=== PATIENT | male | born 1975 | race Caucasian/White ===

== ENCOUNTER 2020-07-24 12:34 | Inpatient (IN) | payer OTHER ==
[2020-07-24] MEDS ORDERED: Pantoprazole 40 MG Vial IVPUSH ONE (13:03)
--- NOTE | 2020-07-24 13:08 | EDM.PDOC ---
ED HPI GENERAL MEDICAL PROBLEM - General Chief Complaint: Syncope Stated Complaint: [facility] Time Seen by Provider: 07/24/20 13:02 Source of Information: Reports: Patient History Limitations: Reports: No Limitations - History of Present Illness INITIAL COMMENTS - FREE TEXT/NARRATIVE: 44-year-old male presents the ED from [place] per [facility]. Patient reports that he has appreciated black tarry stools once yesterday once again this morning and perhaps once or twice 2 days ago. He said no GI cramps or pain. He is on a diet and only eats once daily. He takes aspirin usually 325 mg daily. Does not take it every day. He denies any use of other NSAIDs such as Motrin or Naprosyn. He has not been on any steroids recently. Does not really have any significant heartburn and is not been having a lot of upper abdominal discomfort particular nothing that would wake him up in night to suggest peptic ulcer disease. This morning he went into the bathroom and started feel lightheaded dizzy and had a syncopal event which put him down to the floor. He fell backwards and did strike the floor with the right parietal occipital scalp and does have a small hematoma in this area. He does not believe he was unresponsive for very long. At present he is alert oriented with no nausea or vomiting. Feels weak and lightheaded with standing. Patient takes no medications [id number] or prescribed by Onset: Gradual (First noted dark black tarry stools x2 3 days ago. Had 1) Onset Date: 07/22/20 Duration: Day(s):, Constant, Getting Worse Location: Reports: Other (Black tarry stools per rectum for the last 3 days. Syncopal event this morning.) Quality: Reports: Other Severity: Moderate (Black tarry stools) Improves with: Reports: None Worsens with: Reports: None Context: Denies: Activity, Exercise, Lifting, Sick Contact, Trauma, Other Associated Symptoms: Reports: Syncope (Syncopal event this morning. Syncopal event this morning.), Weakness. Denies: No Other Symptoms, Confusion, Chest Pain, Cough, cough w sputum, Diaphoresis, Fever/Chills, Headaches, Loss of Appetite, Malaise, Nausea/Vomiting, Rash, Seizure, Shortness of Breath Treatments DRUG ENFORCEMENT AGENT: Reports: Other (see below) (None.) - Related Data Allergies Allergy/AdvReac Type Severity Reaction Status Date / Time No Known Allergies Allergy Verified 07/24/20 12:53 Home Meds: Home Meds Albuterol [Ventolin HFA] 1 dose INH Q4H PRN 07/24/20 [History] Past Medical History Respiratory History: Reports: Asthma - Past Surgical History GI Surgical History: Reports: Other (See Below) Other GI Surgeries/Procedures: surgery where he is unable to vomit now Social & Family History - Tobacco Use Smoking Status *Q: Never Smoker - Caffeine Use Caffeine Use: Reports: None - Recreational Drug Use Recreational Drug Use: No - Living Situation & Occupation Occupation: Employed ED ROS GENERAL - Review of Systems Review Of Systems: See Below Constitutional: Reports: Malaise, Weakness, Fatigue. Denies: Fever, Chills HEENT: Reports: No Symptoms Respiratory: Reports: No Symptoms Cardiovascular: Reports: Syncope (Couple event this morning in the bathroom. He states he did start to feel little lightheaded and dizzy and the next thing he knew he was on the floor. States he did have a bump to his right parietal occipital scalp but does not believe he lost consciousness for very long.) Endocrine: Reports: No Symptoms GI/Abdominal: Reports: Melena (Dark melena stool once this morning once yesterday and twice the day before.) : Reports: No Symptoms Musculoskeletal: Reports: No Symptoms Skin: Reports: No Symptoms Neurological: Reports: No Symptoms Psychiatric: Reports: No Symptoms Hematologic/Lymphatic: Reports: No Symptoms Immunologic: Reports: No Symptoms - Physical Exam Exam: See Below Exam Limited By: No Limitations General Appearance: Alert, WD/WN, No Apparent Distress, Other (Temperature is 36.4 with a heart rate of 100 at rest. Respiratory is 20 with O2 sats 100% room air BP 134/97.) Eye Exam: Bilateral Eye: Normal Inspection (No scleral icterus or blepharal pallor.), PERRL Throat/Mouth: Normal Inspection, Normal Lips, Normal Oropharynx Head Exam: Scalp Hematoma (Open wounds or bleeding.), Other Neck: Normal Inspection, Supple, Non-Tender, Full Range of Motion, Other. No: Lymphadenopathy (L), Lymphadenopathy (R) Respiratory/Chest: No Respiratory Distress (Reports his neck feels a little stiff but he has full range of motion.), Lungs Clear, Normal Breath Sounds, No Accessory Muscle Use, Chest Non-Tender, Other (No pain on firm compression of his ribs.) Cardiovascular: Normal Peripheral Pulses, Regular Rate, Rhythm, No Edema, No Gallop, No Murmur, No Rub GI/Abdominal: Normal Bowel Sounds, Soft, Non-Tender, No Organomegaly, No Abnormal Bruit, Pelvis Stable, Other (Patient has a midline surgical scar from xiphoid process to the umbilicus. He states at age 13 due to severe reflux disease which was thought to be aggravating his asthma he underwent a Yovany fundoplication. This was done to open.) (Male) Exam: No Hernia Neuro Exam (Abbreviated): Alert, Oriented, CN II-XII Intact, Normal Cognition Back Exam: Normal Inspection, Full Range of Motion, Other (He is aware some low back tenderness but I could not elicit any tenderness on firm palpation over the). No: CVA Tenderness (L), CVA Tenderness (R) Extremities: Normal Inspection ( vertebra.), Normal Range of Motion, Non-Tender, No Pedal Edema Psychiatric: Normal Affect, Normal Mood Skin Exam: Warm, Dry, Intact, Normal Color, No Rash, Other (Perhaps slight pallor in the creases of his hands. No blepharal pallor) EKG INTERPRETATION EKG Date: 07/24/20 Time: 15:37 Rhythm: NSR Rate (Beats/Min): 84 [place]: LAD-Left [place] Deviation (Normal left axis deviation at -7 degrees) P-Wave: Present QRS: Other (Decreased voltage precordial and limb leads.) ST-T: Other (T wave flattening in leads III and aVF nonspecific finding.) QT: Normal EKG Interpretation Comments: Essentially normal ECG. Course - Vital Signs Last Recorded V/S: Last Vital Signs Temp 36.4 C 07/24/20 12:44 Pulse 100 07/24/20 12:44 Resp 20 07/24/20 12:44 BP 134/97 H 07/24/20 12:44 Pulse Ox 100 07/24/20 12:44 Orthostatic Blood Pressure [ 103/71 Standing] Orthostatic Blood Pressure [ 109/68 Sitting] Orthostatic Blood Pressure [ 110/71 Supine] - Orders/Labs/Meds Orders: Active Orders 24 hr Category Date Time Status Admission Diagnosis [ADT] Stat ADT 07/24/20 15:26 Ordered Admission Status [Patient Status] [ADT] Routine ADT 07/24/20 15:27 Active EKG Documentation Completion [RC] STAT Care 07/24/20 15:30 Active Orthostatic Vital Signs [RC] ASDIRECTED Care 07/24/20 13:03 Active CORONAVIRUS COVID-19 RAPID [MOLEC] Stat Lab 07/24/20 15:05 Received H PYLORI STOOL ANTIGEN [MREF] Stat Lab 07/24/20 13:06 Ordered PATIENT RETYPE [BBK] Routine Lab 07/24/20 15:35 Ordered Sodium Chloride 0.9% [Normal Saline] 1,000 ml Med 07/24/20 13:15 Active IV ASDIRECTED Medication Orders Sodium Chloride (Normal Saline) 1,000 mls @ 500 mls/hr IV ASDIRECTED LUNA Last Admin: 07/24/20 13:32 Dose: 500 mls/hr Documented by: LOGAN Labs: Laboratory Tests 07/24/20 07/24/20 07/24/20 Range/Units 13:18 13:18 13:18 WBC 6.73 (4.23-9.07) K/mm3 RBC 3.96 L (4.63-6.08) M/mm3 Hgb 11.2 L (13.7-17.5) gm/dl Hct 34.4 L (40.1-51.0) % MCV 86.9 (79.0-92.2) fl MCH 28.3 (25.7-32.2) pg MCHC 32.6 (32.2-35.5) g/dl RDW Std Deviation 41.6 (35.1-43.9) fL Plt Count 254 (163-337) K/mm3 MPV 10.2 (9.4-12.3) fl Neut % (Auto) 75.8 H (34.0-67.9) % Lymph % (Auto) 13.8 L (21.8-53.1) % Stone % (Auto) 7.9 (5.3-12.2) % Eos % (Auto) 1.9 (0.8-7.0) Baso % (Auto) 0.3 (0.1-1.2) % Neut # (Auto) 5.10 (1.78-5.38) K/mm3 Lymph # (Auto) 0.93 L (1.32-3.57) K/mm3 Stone # (Auto) 0.53 (0.30-0.82) K/mm3 Eos # (Auto) 0.13 (0.04-0.54) K/mm3 Baso # (Auto) 0.02 (0.01-0.08) K/mm3 ESR (0-15) mm/hr PT 11.7 (9.7-11.7) SECONDS INR 1.10 APTT (22-31) SECONDS Sodium 138 (136-145) mEq/L Potassium 4.4 (3.5-5.1) mEq/L Chloride 104 (98-107) mEq/L Carbon Dioxide 28 (21-32) mEq/L Anion Gap 10.4 (5-15) BUN 41 H (7-18) mg/dL Creatinine 0.8 (0.7-1.3) mg/dL Est Cr Clr Drug Dosing 126.81 mL/min Estimated GFR (MDRD) > 60 (>60) mL/min BUN/Creatinine Ratio 51.3 H (14-18) Glucose 91 (74-106) mg/dL Calcium 7.9 L (8.5-10.1) mg/dL Magnesium 1.7 L (1.8-2.4) mg/dl Total Bilirubin 0.5 (0.2-1.0) mg/dL AST 13 L (15-37) U/L ALT 24 (16-63) U/L Alkaline Phosphatase 42 L (46-116) U/L C-Reactive Protein 0.2 (<1.0) mg/dL Total Protein 5.9 L (6.4-8.2) g/dl Albumin 3.2 L (3.4-5.0) g/dl Globulin 2.7 gm/dL Albumin/Globulin Ratio 1.2 (1-2) Blood Type Gel Antibody Screen 07/24/20 07/24/20 Range/Units 13:18 13:18 WBC (4.23-9.07) K/mm3 RBC (4.63-6.08) M/mm3 Hgb (13.7-17.5) gm/dl Hct (40.1-51.0) % MCV (79.0-92.2) fl MCH (25.7-32.2) pg MCHC (32.2-35.5) g/dl RDW Std Deviation (35.1-43.9) fL Plt Count (163-337) K/mm3 MPV (9.4-12.3) fl Neut % (Auto) (34.0-67.9) % Lymph % (Auto) (21.8-53.1) % Stone % (Auto) (5.3-12.2) % Eos % (Auto) (0.8-7.0) Baso % (Auto) (0.1-1.2) % Neut # (Auto) (1.78-5.38) K/mm3 Lymph # (Auto) (1.32-3.57) K/mm3 Stone # (Auto) (0.30-0.82) K/mm3 Eos # (Auto) (0.04-0.54) K/mm3 Baso # (Auto) (0.01-0.08) K/mm3 ESR 3 (0-15) mm/hr PT (9.7-11.7) SECONDS INR APTT (22-31) SECONDS Sodium (136-145) mEq/L Potassium (3.5-5.1) mEq/L Chloride (98-107) mEq/L Carbon Dioxide (21-32) mEq/L Anion Gap (5-15) BUN (7-18) mg/dL Creatinine (0.7-1.3) mg/dL Est Cr Clr Drug Dosing mL/min Estimated GFR (MDRD) (>60) mL/min BUN/Creatinine Ratio (14-18) Glucose (74-106) mg/dL Calcium (8.5-10.1) mg/dL Magnesium (1.8-2.4) mg/dl Total Bilirubin (0.2-1.0) mg/dL AST (15-37) U/L ALT (16-63) U/L Alkaline Phosphatase (46-116) U/L C-Reactive Protein (<1.0) mg/dL Total Protein (6.4-8.2) g/dl Albumin (3.4-5.0) g/dl Globulin gm/dL Albumin/Globulin Ratio (1-2) Blood Type B POSITIVE Gel Antibody Screen Negative Meds: Medications Generic Name Dose Route Start Last Admin Trade Name Freq PRN Reason Stop Dose Admin Sodium Chloride 1,000 mls @ 500 mls/hr 07/24/20 13:15 07/24/20 13:32 Normal Saline IV 500 mls/hr ASDIRECTED LUNA Administration Discontinued Medications Generic Name Dose Route Start Last Admin Trade Name Alfredo PRN Reason Stop Dose Admin Pantoprazole Sodium 80 mg 07/24/20 13:03 07/24/20 13:33 Protonix Iv IVPUSH 07/24/20 13:04 80 mg BOLUS ONE Administration - Radiology Interpretation Free Text/Narrative:: 44-year-old male presents to the ED reporting dark black tarry stools x3 days. First day it sounds like he had 2 black tarry stools yesterday had a large black tarry stool and again this morning. When he went to the bathroom this morning he started feel dizzy lightheaded and experienced a syncopal event and went down to the floor. He did hit his head with a hematoma forming on the right parietal occipital scalp. Not believed to of lost any consciousness. Subsequently he has not developed any nausea vomiting or intense headache. Neuro exam is otherwise normal. The rest of his examination is normal with no abdominal tenderness elicited. He appears to be suffering from an upper GI bleed likely peptic ulcer in origin. Plan orthostatic blood pressures to be done. IV will be normal saline at open. Will be given Protonix 80 mg IV bolus but no drip at this time. He is stable from point of view of vital signs. Routine labs to be collected including a type and screen. - Re-Assessments/Exams Free Text/Narrative Re-Assessment/Exam: 07/24/20 14:20 White count is 6.73 with an auto differential of 76% neutrophils. Hemoglobin is slightly low at 11.2 with hematocrit of 34.4. MCV is normal at 86.9. Platelet count is 254,000. PT is 11.7 with an INR of 1.10. PTT is pending. Sodium 138 with a potassium of 4.4 chloride 104 with a bicarb of 28. Anion gap is 10.4 BUN is elevated at 41 dusting strongly that this is an upper GI bleeding source. Creatinine is 0.8 with a GFR greater than 60. BUN/creatinine ratio is markedly elevated at 51.3. Glucose is 91 with a calcium slightly low at 7.9. Magnesium is slightly low at 1.7. Liver function is normal. C-reactive protein is 0.2 total protein 5.9 with an albumin fraction of 3.2. 07/24/20 15:20 I have discussed the findings with the patient. I have also discussed the case with Dr. Tanner on-call surgeon and he will see the patient in the hospital. Bridge orders will be written temporarily for admission to the med surgery floor with an upper GI bleed. Patient feels like he may have to have another bowel movement. He was also standing at the bedside to void and felt lightheaded and dizzy. COVID-19 testing to be done. We will also require a ECG due to the fact that he had a syncopal event. Bridge orders will be written. Departure - Departure Time of Disposition: 15:27 Disposition: Admitted As Inpatient 67 Condition: Fair Clinical Impression: Upper gastrointestinal hemorrhage, Syncope and collapse, Minor closed head injury - Discharge Information *PRESCRIPTION DRUG MONITORING PROGRAM REVIEWED*: Not Applicable *COPY OF PRESCRIPTION DRUG MONITORING REPORT IN PATIENT PATRICE: Not Applicable Referrals: PCP,None [Primary Care Provider] - Forms: ED Department Discharge Sepsis Event Note (ED) - Evaluation Sepsis Screening Result: No Definite Risk - Focused Exam Vital Signs: Vital Signs Temp Pulse Resp BP Pulse Ox 07/24/20 12:44 36.4 C 100 20 134/97 H 100 - My Orders Last 24 Hours: My Active Orders 07/24/20 13:03 Orthostatic Vital Signs [RC] ASDIRECTED 07/24/20 13:06 H PYLORI STOOL ANTIGEN [MREF] Stat 07/24/20 13:15 Sodium Chloride 0.9% [Normal Saline] 1,000 ml IV ASDIRECTED 07/24/20 15:05 CORONAVIRUS COVID-19 RAPID [MOLEC] Stat 07/24/20 15:26 Admission Diagnosis [ADT] Stat 07/24/20 15:27 Admission Status [Patient Status] [ADT] Routine 07/24/20 15:30 EKG Documentation Completion [RC] STAT 07/24/20 15:35 PATIENT RETYPE [BBK] Routine - Assessment/Plan Last 24 Hours: My Active Orders 07/24/20 13:03 Orthostatic Vital Signs [RC] ASDIRECTED 07/24/20 13:06 H PYLORI STOOL ANTIGEN [MREF] Stat 07/24/20 13:15 Sodium Chloride 0.9% [Normal Saline] 1,000 ml IV ASDIRECTED 07/24/20 15:05 CORONAVIRUS COVID-19 RAPID [MOLEC] Stat 07/24/20 15:26 Admission Diagnosis [ADT] Stat 07/24/20 15:27 Admission Status [Patient Status] [ADT] Routine 07/24/20 15:30 EKG Documentation Completion [RC] STAT 07/24/20 15:35 PATIENT RETYPE [BBK] Routine
[2020-07-24] MEDS ORDERED: Sodium Chloride 0.9% 1,000 ML IV SCH (13:15)
[2020-07-24] MEDS ORDERED: Albuterol 6.7 GM Inhaler INH PRN (16:58)
[2020-07-24] MEDS: Sodium Chloride 0.9% 1,000 ML IV SCH (17:11)
[2020-07-24] MEDS ORDERED: Ondansetron 4 MG/2 ML SDV IVPUSH PRN (17:25)
[2020-07-24] MEDS ORDERED: ALBUTEROL INH PRN (17:41)
--- NOTE | 2020-07-24 17:42 | PCM.HP.2 ---
H&P History of Present Illness - General Date of Service: 07/24/20 Admit Problem/Dx: Admission Diagnosis/Problem Admission Diagnosis/Problem Upper gastrointestinal hemorrhage Source of Information: Patient History Limitations: Reports: No Limitations - History of Present Illness Initial Comments - Free Text/Narative: The patient started having black stools 3 days ago. Today he had black diarrhea and passed out in the bathroom. When he got up he came to the ED. this is the first time he had syncopal episode. In the ED Hgb was 11.2. He feels dizzy when he stands up and on prolonged standing. Never had anything like this in the past. Denies any abdominal pain. Takes no anticoagulants. takes ASA occasionally for headaches. History of Yovany fundoplication 30 yrs ago fore reflux. Onset of Symptoms: Reports: Gradual Duration of Symptoms: Reports: Day(s): (3) Location: Reports: Other (stools) Severity: Mild Improves with: Reports: None Worsens with: Reports: None Associated Symptoms: Reports: Nausea/Vomiting, Syncope - Related Data Allergies/Adverse Reactions: Allergies Allergy/AdvReac Type Severity Reaction Status Date / Time No Known Allergies Allergy Verified 07/24/20 12:53 Home Medications: Home Meds Albuterol [Ventolin HFA] 1 dose INH Q4H PRN 07/24/20 [History] Past Medical History Respiratory History: Reports: Asthma Gastrointestinal History: Reports: GI Bleed - Infectious Disease History Infectious Disease History: Reports: Chicken Pox - Past Surgical History GI Surgical History: Reports: Yovany Fundoplication Social & Family History - Family History Family Medical History: Noncontributory - Tobacco Use Smoking Status *Q: Never Smoker - Caffeine Use Caffeine Use: Reports: Energy Drinks, Other Other Caffeine Use: 5 hour energy Caffeine Use Comment: 1 of each a day - Recreational Drug Use Recreational Drug Use: No - Living Situation & Occupation Occupation: Employed H&P Review of Systems - Review of Systems: Review Of Systems: See Below General: Reports: No Symptoms HEENT: Reports: No Symptoms Pulmonary: Reports: No Symptoms Cardiovascular: Reports: No Symptoms Gastrointestinal: Reports: No Symptoms Genitourinary: Reports: No Symptoms Musculoskeletal: Reports: No Symptoms Skin: Reports: No Symptoms Psychiatric: Reports: No Symptoms Neurological: Reports: No Symptoms Exam - Exam Exam: See Below - Vital Signs Vital Signs: Last Vital Signs Temp 97.6 F 07/24/20 12:44 Pulse 100 07/24/20 12:44 Resp 20 07/24/20 12:44 BP 134/97 H 07/24/20 12:44 Pulse Ox 100 07/24/20 12:44 Orthostatic Blood Pressure [ 103/71 Standing] Orthostatic Blood Pressure [ 109/68 Sitting] Orthostatic Blood Pressure [ 110/71 Supine] Weight: 93.485 kg - Exam General: Alert, Oriented, Cooperative Neck: Supple, Trachea Midline Lungs: Clear to Auscultation, Normal Respiratory Effort Cardiovascular: Regular Rate, Regular Rhythm GI/Abdominal Exam: Soft, Non-Tender, No Organomegaly, No Distention, No Abnormal Bruit - Patient Data Lab Results Last 24 hrs: Laboratory Results - last 24 hr 07/24/20 07/24/20 07/24/20 Range/Units 13:18 13:18 13:18 WBC 6.73 (4.23-9.07) K/mm3 RBC 3.96 L (4.63-6.08) M/mm3 Hgb 11.2 L (13.7-17.5) gm/dl Hct 34.4 L (40.1-51.0) % MCV 86.9 (79.0-92.2) fl MCH 28.3 (25.7-32.2) pg MCHC 32.6 (32.2-35.5) g/dl RDW Std Deviation 41.6 (35.1-43.9) fL Plt Count 254 (163-337) K/mm3 MPV 10.2 (9.4-12.3) fl Neut % (Auto) 75.8 H (34.0-67.9) % Lymph % (Auto) 13.8 L (21.8-53.1) % Barren % (Auto) 7.9 (5.3-12.2) % Eos % (Auto) 1.9 (0.8-7.0) Baso % (Auto) 0.3 (0.1-1.2) % Neut # (Auto) 5.10 (1.78-5.38) K/mm3 Lymph # (Auto) 0.93 L (1.32-3.57) K/mm3 Barren # (Auto) 0.53 (0.30-0.82) K/mm3 Eos # (Auto) 0.13 (0.04-0.54) K/mm3 Baso # (Auto) 0.02 (0.01-0.08) K/mm3 ESR (0-15) mm/hr PT 11.7 (9.7-11.7) SECONDS INR 1.10 APTT (22-31) SECONDS Sodium 138 (136-145) mEq/L Potassium 4.4 (3.5-5.1) mEq/L Chloride 104 (98-107) mEq/L Carbon Dioxide 28 (21-32) mEq/L Anion Gap 10.4 (5-15) BUN 41 H (7-18) mg/dL Creatinine 0.8 (0.7-1.3) mg/dL Est Cr Clr Drug Dosing 126.81 mL/min Estimated GFR (MDRD) > 60 (>60) mL/min BUN/Creatinine Ratio 51.3 H (14-18) Glucose 91 (74-106) mg/dL Calcium 7.9 L (8.5-10.1) mg/dL Magnesium 1.7 L (1.8-2.4) mg/dl Total Bilirubin 0.5 (0.2-1.0) mg/dL AST 13 L (15-37) U/L ALT 24 (16-63) U/L Alkaline Phosphatase 42 L (46-116) U/L C-Reactive Protein 0.2 (<1.0) mg/dL Total Protein 5.9 L (6.4-8.2) g/dl Albumin 3.2 L (3.4-5.0) g/dl Globulin 2.7 gm/dL Albumin/Globulin Ratio 1.2 (1-2) COVID-19 (WON) (NEGATIVE) Blood Type Gel Antibody Screen 07/24/20 07/24/20 07/24/20 Range/Units 13:18 13:18 15:05 WBC (4.23-9.07) K/mm3 RBC (4.63-6.08) M/mm3 Hgb (13.7-17.5) gm/dl Hct (40.1-51.0) % MCV (79.0-92.2) fl MCH (25.7-32.2) pg MCHC (32.2-35.5) g/dl RDW Std Deviation (35.1-43.9) fL Plt Count (163-337) K/mm3 MPV (9.4-12.3) fl Neut % (Auto) (34.0-67.9) % Lymph % (Auto) (21.8-53.1) % Barren % (Auto) (5.3-12.2) % Eos % (Auto) (0.8-7.0) Baso % (Auto) (0.1-1.2) % Neut # (Auto) (1.78-5.38) K/mm3 Lymph # (Auto) (1.32-3.57) K/mm3 Barren # (Auto) (0.30-0.82) K/mm3 Eos # (Auto) (0.04-0.54) K/mm3 Baso # (Auto) (0.01-0.08) K/mm3 ESR 3 (0-15) mm/hr PT (9.7-11.7) SECONDS INR APTT (22-31) SECONDS Sodium (136-145) mEq/L Potassium (3.5-5.1) mEq/L Chloride (98-107) mEq/L Carbon Dioxide (21-32) mEq/L Anion Gap (5-15) BUN (7-18) mg/dL Creatinine (0.7-1.3) mg/dL Est Cr Clr Drug Dosing mL/min Estimated GFR (MDRD) (>60) mL/min BUN/Creatinine Ratio (14-18) Glucose (74-106) mg/dL Calcium (8.5-10.1) mg/dL Magnesium (1.8-2.4) mg/dl Total Bilirubin (0.2-1.0) mg/dL AST (15-37) U/L ALT (16-63) U/L Alkaline Phosphatase (46-116) U/L C-Reactive Protein (<1.0) mg/dL Total Protein (6.4-8.2) g/dl Albumin (3.4-5.0) g/dl Globulin gm/dL Albumin/Globulin Ratio (1-2) COVID-19 (WON) Negative (NEGATIVE) Blood Type B POSITIVE Gel Antibody Screen Negative Result Diagrams: 07/24/20 13:18 07/24/20 13:18 Sepsis Event Note - Evaluation Sepsis Screening Result: No Definite Risk - Focused Exam Vital Signs: Vital Signs Temp Pulse Resp BP Pulse Ox 07/24/20 12:44 97.6 F 100 20 134/97 H 100 Problem List Initiated/Reviewed/Updated: No Orders Last 24hrs: Active Orders 24 hr Category Date Time Status Admission Diagnosis [ADT] Stat ADT 07/24/20 15:26 Ordered Admission Status [Patient Status] [ADT] Routine ADT 07/24/20 15:27 Active Patient Status [ADT] Routine ADT 07/24/20 17:10 Active EKG Documentation Completion [RC] STAT Care 07/24/20 15:30 Active Intake and Output [RC] QSHIFT Care 07/24/20 17:10 Active Orthostatic Vital Signs [RC] ASDIRECTED Care 07/24/20 13:03 Active RT Post Treatment Assessment [RC] Click to Edit Care 07/24/20 16:58 Active RT Pre-Treatment Assessment [RC] Click to Edit Care 07/24/20 16:58 Active Up With Assistance [RC] ASDIRECTED Care 07/24/20 16:57 Active Vital Signs [RC] Q4H Care 07/24/20 17:10 Active NPO [Nothing Per Oral Diet] [DIET] Diet 07/24/20 Dinner Active H PYLORI STOOL ANTIGEN [MREF] Stat Lab 07/24/20 13:06 Ordered HEMOGLOBIN/HEMATOCRIT,HH [HEME] Q8H Lab 07/24/20 22:00 Ordered PATIENT RETYPE [BBK] Routine Lab 07/24/20 15:35 Ordered Albuterol [Proventil HFA] Med 07/24/20 16:58 Active See Dose Instructions INH Q4H PRN Ondansetron [Zofran] Med 07/24/20 17:25 Active 4 mg IVPUSH Q6H PRN Pantoprazole [ProTONIX IV] Med 07/24/20 22:00 Active 40 mg IVPUSH Q12H Sodium Chloride 0.9% [Normal Saline] 1,000 ml Med 07/24/20 17:00 Active IV ASDIRECTED Resuscitation Status Routine Resus Stat 07/24/20 16:56 Ordered Medication Orders Albuterol (Proventil Hfa) 0 gm INH Q4H PRN PRN Reason: shortness of breath Sodium Chloride (Normal Saline) 1,000 mls @ 125 mls/hr IV ASDIRECTED LUNA Last Admin: 07/24/20 17:11 Dose: 125 mls/hr Documented by: JENNIFER Ondansetron HCl (Zofran) 4 mg IVPUSH Q6H PRN PRN Reason: Nausea Pantoprazole Sodium (Protonix Iv) 40 mg IVPUSH Q12H [facility] Assessment/Plan Comment:: Patient has GI bleeding. Likely upper because stools are black. Has lightheadedness. - Will keep NPO, IVF - Monitor vitals - continue BID PPIs - H/H Q8HR - If symptoms persist, we will consider endoscopic intervention
[2020-07-24] MEDS ORDERED: Magnesium Sulfate/Water 2 GM in Premix Bag 1 BAG IV ONE (17:46)
[2020-07-24] MEDS: Pantoprazole 40 MG Vial IVPUSH SCH (22:24)
[2020-07-25] MEDS: Sodium Chloride 0.9% 1,000 ML IV SCH ×2 (02:31→12:00)
[2020-07-25] MEDS: Pantoprazole 40 MG Vial IVPUSH SCH ×2 (09:41→21:56)
--- NOTE | 2020-07-25 10:26 | PCM.CONS ---
H&P History of Present Illness - General Date of Service: 07/25/20 Admit Problem/Dx: Admission Diagnosis/Problem Admission Diagnosis/Problem Upper gastrointestinal hemorrhage - History of Present Illness Initial Comments - Free Text/Narative: This is a 44-year-old male with past medical history of exercise-induced asthma and Yovany fundoplication who was brought to the emergency department via EMS after a syncopal episode. As per patient yesterday morning around 10 he woke up and walked to the bathroom and later woke up on the floor, facing up, leaning against the wall groggy, cold and clammy, with pain on the back of his head on the right side. After episode he recalls being oriented to location and person temporarily and had another loss of consciousness episode. He does not recall actual fall. Las thing he remembers is leaning on the counter to pee. Denies any nausea, vomiting, visual auras or blurry vision, palpitations, shortness of breath or chest pain, confusion, fatigue, and bladder or bowel incontinence before or after episodes. Downtime unknown. Unwitnessed. As soon as he regained consciousness he had the urge to have a bowel movement so he propped himself on his knees and then using the sink to stand up and sit on the commode, had a normal sized liquid black bowel movement. Notes that he was very diaphoretic and the floor was wet where he was laying. After bowel movement he got up, walked fast to his bed to lay down, texted his who called him and told him to call EMS. He called EMS and walked to the living room and lay on the couch. A friend showed up and described him as having slurred speech, feeling cold and clammy with a faint pulse. Denies any associated symptoms after bowel movement except for feeling groggy. Whole episode lasted about 30 minutes. Reports: -Prior syncope 3 years ago due to heat stroke -Solid, black bowel movement 3 days ago without any associated symptoms -Last meal > 12 hours prior, and was just a candy bar -Only prescription medication is PRN Ventolin which he uses most of the time when he exercises (3-4/week) -Taking collagen and joint supplements as well as krill oil -Drinks liquid IV before each workout -Family history: -Dad had a stroke at age 59 -Paternal grandfather at age 78 from pneumonia -Paternal grandmother at age 90, described to need oxygen supplementation prior to her -42-year-old brother just underwent esophageal dilation Denies: -Prior episodes -Pre-existing structural heart diseases -Neurologic conditions, -Diabetes -Intoxications with alcohol, illicit drug use or prescription narcotics -Psychiatric illness -Hypertension -Symptoms while lying down -Abrupt neck movements -Emotional distress -Fear -Severe pain -Dietary supplements -Family history of: -Sudden -Deaths younger than 40y/o -Heart disease -Dyslipidemia -Lung disease -Seizure disorders -Chronic migraines Of note: Has changed his lifestyle in the past month -Intermittent fasting -Lost about 15lbs -Has not been eating well, drinking enough water or sleeping -Eats: Meal with protein and vegetables around 3 PM and has a snack (protein bar/granola bar/candy bar) around 6 PM -Yesterday had some chicken at 3 and a candy bar at 6PM -Sleeping only 3-4 hours a day -Drinks 2L of water a day -Exercising 1 hour x 3-4/week (30min cardio and weights) Has a prior diagnosis of asthma -Diagnosed at 12/22 reflux Yovany fundoplication performed -Has only used PRN Ventolin since then Rapid response called on 07/24/20 in the evening: -Patient stated he needed help as legs were giving out and RN helped him to the floor -Diaphoretic, pale and mumbling with rest of physical exam within normal limits -Remained on floor for some time -Helped up by nursing to bed -Stable VS and euglycemia - Related Data Allergies/Adverse Reactions: Allergies Allergy/AdvReac Type Severity Reaction Status Date / Time No Known Allergies Allergy Verified 07/25/20 02:13 Home Medications: Home Meds Albuterol [Ventolin HFA] 1 dose INH Q4H PRN 07/24/20 [History] Past Medical History Respiratory History: Reports: Asthma Gastrointestinal History: Reports: GI Bleed - Infectious Disease History Infectious Disease History: Reports: Chicken Pox - Past Surgical History GI Surgical History: Reports: Yovany Fundoplication Social & Family History - Family History Family Medical History: Noncontributory - Tobacco Use Smoking Status *Q: Never Smoker - Caffeine Use Caffeine Use: Reports: Energy Drinks, Other Other Caffeine Use: 5 hour energy Caffeine Use Comment: 1 of each a day - Recreational Drug Use Recreational Drug Use: No - Living Situation & Occupation Occupation: Employed H&P Review of Systems - Review of Systems: Review Of Systems: See Below General: Reports: Weight Loss. Denies: Fever, Chills, Malaise, Weakness, Fatigue, Night Sweats, Diaphoresis, Decreased Appetite, Weight Gain HEENT: Denies: Contact Lenses, Dysphasia, Ear Pain, Eye Pain, Glasses, Headaches, Hearing Changes, Rhinitis, Post Nasal Drip, Sinus Congestion, Sore Throat, Vertigo, Visual Changes Pulmonary: Reports: Wheezing (with exercise, especially running). Denies: Shortness of Breath, Pleuritic Chest Pain, Cough, Sputum, Hemoptysis Cardiovascular: Reports: Syncope. Denies: Chest Pain, Palpitations, Dyspnea on Exertion, Orthopnea, PND, Edema, Lightheadedness, Claudication, Blood Pressure Problem Gastrointestinal: Reports: Black Stool, Melena. Denies: Abdominal Pain, Anorexia, Bloody Stool, Constipation, Diarrhea, Decreased Appetite, Difficulty Swallowing, Distension, Flatus, Hematemesis, Hematochezia, Mucous in Stool, Nausea, Stool Incontinence, Vomiting Genitourinary: Denies: Dysuria, Frequency, Burning, Pain, Urgency, Incontinence, Hematuria, Discharge, Retention, Flank Pain Musculoskeletal: Denies: Joint Pain, Joint Swelling, Muscle Pain, Muscle Stiffness Skin: Reports: Diaphoresis. Denies: Cyanosis, Jaundice, Mottled, Pallor, Dryness, Bruising, Pruritis, Rash, Erythema, Wound Psychiatric: Denies: Depression, Mood Lability, Anxiety, Agitation, Cravings, Hallucinations, Suicidal Ideation, Homicidal Ideation, Hallucinations (Florentino tory), Hallucinations (Visual) Neurological: Reports: Syncope. Denies: Dizziness, Headache, Numbness, Paresthesia, Pre-Existing Deficit, Seizure, Tingling, Tremors, Trouble Speaking, Difficulty Walking, Weakness, Change in Speech, Gait Disturbance Exam - Exam Exam: See Below - Vital Signs Vital Signs: Last Vital Signs Temp 99.0 F 07/25/20 08:57 Pulse 75 07/25/20 08:57 Resp 16 07/25/20 08:57 BP 109/51 L 07/25/20 08:57 Pulse Ox 96 07/25/20 08:57 Orthostatic Blood Pressure [ 88/59 Standing] Orthostatic Blood Pressure [ 108/67 Sitting] Orthostatic Blood Pressure [ 95/56 Supine] Weight: 94.755 kg - Exam General: Alert, Oriented, Cooperative. No: Mild Distress HEENT: Conjunctiva Clear, EACs Clear, EOMI Cardiovascular: Regular Rate, Regular Rhythm, Systolic Murmur (Holosystolic,II- III/, nonradiating, worsened with handgrip, best heard at mitral valve area), Other (Blood pressure equal on both arms) GI/Abdominal Exam: Normal Bowel Sounds, Soft, Non-Tender. No: Distended, Guarding, Rigid, Rebound Extremities: Normal Inspection, Normal Range of Motion, Non-Tender, No Pedal Edema Peripheral Pulses: 2+: Radial (L), Radial (R), Dorsalis Pedis (L), Dorsalis Pedis (R) Neuro Extensive - Mental Status: Alert, Oriented x3, Normal Mood/Affect, Normal Cognition, Memory Intact Psychiatric: Alert, Normal Affect, Normal Mood - Patient Data Result Diagrams: 07/25/20 14:00 07/24/20 20:45 Sepsis Event Note - Evaluation Sepsis Screening Result: No Definite Risk Consult PN Assessment/Plan (1) LOC (loss of consciousness) SNOMED Code(s): 366565526, 600345149 Code(s): R40.20 - UNSPECIFIED COMA Current Visit: Yes (2) Orthostatic hypotension SNOMED Code(s): 33567616 Code(s): I95.1 - ORTHOSTATIC HYPOTENSION Current Visit: Yes (3) Exercise-induced asthma SNOMED Code(s): 44686029 Code(s): J45.990 - EXERCISE INDUCED BRONCHOSPASM Current Visit: Yes (4) Minor closed head injury SNOMED Code(s): 534166122, 962252099353 Code(s): S00.90XA - UNSP SUPERFICIAL INJURY OF UNSP PART OF HEAD, INIT ENCNTR Current Visit: Yes (5) Upper gastrointestinal hemorrhage SNOMED Code(s): 08502262 Code(s): K92.2 - GASTROINTESTINAL HEMORRHAGE, UNSPECIFIED Current Visit: Yes (6) Normocytic normochromic anemia SNOMED Code(s): 42497623 Code(s): D64.9 - ANEMIA, UNSPECIFIED Current Visit: Yes (7) Hypomagnesemia SNOMED Code(s): 504232420 Code(s): E83.42 - HYPOMAGNESEMIA Current Visit: Yes (8) Hypoalbuminemia SNOMED Code(s): 240294971 Code(s): E88.09 - OTH DISORDERS OF PLASMA-PROTEIN METABOLISM, NEC Current Visit: Yes Problem List Initiated/Reviewed/Updated: Yes Plan: 1. Keep patient on telemetry 2. Keep IVF on until patient is taking PO 3. Continue to trend Hb 4. Place compression stockings 5. Ambulation with assistance 6. Vitamin and prealbumin levels 7. Anemia work-up 8. Dietary consult and recommendations 9. Protonix IV BID 10. Gastric and colonic endoscopies in AM 11. H pylori testing from biopsies Requesting Provider: Steffanie Tanner Date Consult Requested: 07/25/20 Reason for Consult: Unclear etiology of syncopal episodes Patient History Reviewed: Yes Admission H&P Reviewed: Yes Consult Result/Summary:: It is unlikely that these are neurologic episodes as patient's neurologic p hysical exam is normal and: - There is no long history of recurrent syncope or prolonged standing or crowded, hot places - Not associated to nausea and vomiting - Did not happen while shaving, eating or after meals or after exertion - Was not wearing anything tight around neck Could be cardiovascular as patient has a holosystolic murmur, however this could be related to acute volume depletion. - There are no other signs pointing to a cardiovascular etiology - No family history, no anatomic disease, normal EKG, denies palpitations, was not exerting himself Does have orthostasis likely secondary to volume depletion from melena, decreased oral intake, poor caloric ingestion Worsened by decreased sleep Recommend 1. Volume repletion 2. Hb trend 3. Telemetry evaluation with associated symptoms 4. Endoscopies with colonic prep 5. Compression stockings 6. Echocardiogram if murmur persists after hemodynamically stable 7. Follow up on ordered labs Notified Requestor: Yes Time Spent (in minutes): 180
[2020-07-25] MEDS ORDERED: Sodium Chloride 0.9% 1,000 ML IV ONE ×2 (11:10→13:30)
--- NOTE | 2020-07-25 13:05 | PCM.PN ---
- General Info Date of Service: 07/25/20 Admission Dx/Problem (Free Text): Admission Diagnosis/Problem GI bleeding Subjective Update: Patient had no bowel movement overnight. He had a syncopal episode when he went to the bathroom to urinate. EKG, Vitals Labs done and were normal. Placed on bedrest. Functional Status: Reports: Urinating - Review of Systems General: Reports: No Symptoms HEENT: Reports: No Symptoms Pulmonary: Reports: No Symptoms Cardiovascular: Reports: No Symptoms Gastrointestinal: Reports: Melena Genitourinary: Reports: No Symptoms Musculoskeletal: Reports: No Symptoms Skin: Reports: No Symptoms Neurological: Reports: Syncope - Patient Data Vitals - Most Recent: Last Vital Signs Temp 97.9 F 07/25/20 12:03 Pulse 74 07/25/20 12:03 Resp 18 07/25/20 12:03 BP 115/63 07/25/20 12:03 Pulse Ox 99 07/25/20 12:03 Orthostatic Blood Pressure [ 88/59 Standing] Orthostatic Blood Pressure [ 108/67 Sitting] Orthostatic Blood Pressure [ 95/56 Supine] Weight - Most Recent: 94.755 kg I&O - Last 24 Hours: Intake & Output 07/24/20 07/25/20 07/25/20 22:59 06:59 14:59 Intake Total 1088 Output Total 1300 Balance -212 Lab Results Last 24 Hours: Laboratory Results - last 24 hr 07/24/20 07/24/20 07/24/20 Range/Units 13:18 13:18 13:18 WBC 6.73 (4.23-9.07) K/mm3 RBC 3.96 L (4.63-6.08) M/mm3 Hgb 11.2 L (13.7-17.5) gm/dl Hct 34.4 L (40.1-51.0) % MCV 86.9 (79.0-92.2) fl MCH 28.3 (25.7-32.2) pg MCHC 32.6 (32.2-35.5) g/dl RDW Std Deviation 41.6 (35.1-43.9) fL Plt Count 254 (163-337) K/mm3 MPV 10.2 (9.4-12.3) fl Neut % (Auto) 75.8 H (34.0-67.9) % Lymph % (Auto) 13.8 L (21.8-53.1) % Wayne % (Auto) 7.9 (5.3-12.2) % Eos % (Auto) 1.9 (0.8-7.0) Baso % (Auto) 0.3 (0.1-1.2) % Neut # (Auto) 5.10 (1.78-5.38) K/mm3 Lymph # (Auto) 0.93 L (1.32-3.57) K/mm3 Wayne # (Auto) 0.53 (0.30-0.82) K/mm3 Eos # (Auto) 0.13 (0.04-0.54) K/mm3 Baso # (Auto) 0.02 (0.01-0.08) K/mm3 ESR (0-15) mm/hr PT 11.7 (9.7-11.7) SECONDS INR 1.10 APTT (22-31) SECONDS Sodium 138 (136-145) mEq/L Potassium 4.4 (3.5-5.1) mEq/L Chloride 104 (98-107) mEq/L Carbon Dioxide 28 (21-32) mEq/L Anion Gap 10.4 (5-15) BUN 41 H (7-18) mg/dL Creatinine 0.8 (0.7-1.3) mg/dL Est Cr Clr Drug Dosing 126.81 mL/min Estimated GFR (MDRD) > 60 (>60) mL/min BUN/Creatinine Ratio 51.3 H (14-18) Glucose 91 (74-106) mg/dL POC Glucose (70-105) mg/dL Calcium 7.9 L (8.5-10.1) mg/dL Phosphorus (2.6-4.7) mg/dL Magnesium 1.7 L (1.8-2.4) mg/dl Total Bilirubin 0.5 (0.2-1.0) mg/dL AST 13 L (15-37) U/L ALT 24 (16-63) U/L Alkaline Phosphatase 42 L (46-116) U/L Troponin I (0.00-0.056) ng/mL C-Reactive Protein 0.2 (<1.0) mg/dL Total Protein 5.9 L (6.4-8.2) g/dl Albumin 3.2 L (3.4-5.0) g/dl Globulin 2.7 gm/dL Albumin/Globulin Ratio 1.2 (1-2) COVID-19 (WON) (NEGATIVE) Blood Type Gel Antibody Screen 07/24/20 07/24/20 07/24/20 Range/Units 13:18 13:18 15:05 WBC (4.23-9.07) K/mm3 RBC (4.63-6.08) M/mm3 Hgb (13.7-17.5) gm/dl Hct (40.1-51.0) % MCV (79.0-92.2) fl MCH (25.7-32.2) pg MCHC (32.2-35.5) g/dl RDW Std Deviation (35.1-43.9) fL Plt Count (163-337) K/mm3 MPV (9.4-12.3) fl Neut % (Auto) (34.0-67.9) % Lymph % (Auto) (21.8-53.1) % Wayne % (Auto) (5.3-12.2) % Eos % (Auto) (0.8-7.0) Baso % (Auto) (0.1-1.2) % Neut # (Auto) (1.78-5.38) K/mm3 Lymph # (Auto) (1.32-3.57) K/mm3 Wayne # (Auto) (0.30-0.82) K/mm3 Eos # (Auto) (0.04-0.54) K/mm3 Baso # (Auto) (0.01-0.08) K/mm3 ESR 3 (0-15) mm/hr PT (9.7-11.7) SECONDS INR APTT (22-31) SECONDS Sodium (136-145) mEq/L Potassium (3.5-5.1) mEq/L Chloride (98-107) mEq/L Carbon Dioxide (21-32) mEq/L Anion Gap (5-15) BUN (7-18) mg/dL Creatinine (0.7-1.3) mg/dL Est Cr Clr Drug Dosing mL/min Estimated GFR (MDRD) (>60) mL/min BUN/Creatinine Ratio (14-18) Glucose (74-106) mg/dL POC Glucose (70-105) mg/dL Calcium (8.5-10.1) mg/dL Phosphorus (2.6-4.7) mg/dL Magnesium (1.8-2.4) mg/dl Total Bilirubin (0.2-1.0) mg/dL AST (15-37) U/L ALT (16-63) U/L Alkaline Phosphatase (46-116) U/L Troponin I (0.00-0.056) ng/mL C-Reactive Protein (<1.0) mg/dL Total Protein (6.4-8.2) g/dl Albumin (3.4-5.0) g/dl Globulin gm/dL Albumin/Globulin Ratio (1-2) COVID-19 (WON) Negative (NEGATIVE) Blood Type B POSITIVE Gel Antibody Screen Negative 07/24/20 07/24/20 07/24/20 Range/Units 20:29 20:45 20:45 WBC 7.13 (4.23-9.07) K/mm3 RBC 3.78 L (4.63-6.08) M/mm3 Hgb 10.7 L (13.7-17.5) gm/dl Hct 32.7 L (40.1-51.0) % MCV 86.5 (79.0-92.2) fl MCH 28.3 (25.7-32.2) pg MCHC 32.7 (32.2-35.5) g/dl RDW Std Deviation 41.1 (35.1-43.9) fL Plt Count 244 (163-337) K/mm3 MPV 10.4 (9.4-12.3) fl Neut % (Auto) 67.4 (34.0-67.9) % Lymph % (Auto) 25.5 (21.8-53.1) % Wayne % (Auto) 5.9 (5.3-12.2) % Eos % (Auto) 0.8 (0.8-7.0) Baso % (Auto) 0.3 (0.1-1.2) % Neut # (Auto) 4.80 (1.78-5.38) K/mm3 Lymph # (Auto) 1.82 (1.32-3.57) K/mm3 Wayne # (Auto) 0.42 (0.30-0.82) K/mm3 Eos # (Auto) 0.06 (0.04-0.54) K/mm3 Baso # (Auto) 0.02 (0.01-0.08) K/mm3 ESR (0-15) mm/hr PT (9.7-11.7) SECONDS INR APTT (22-31) SECONDS Sodium 139 (136-145) mEq/L Potassium 4.1 (3.5-5.1) mEq/L Chloride 105 (98-107) mEq/L Carbon Dioxide 24 (21-32) mEq/L Anion Gap 14.1 (5-15) BUN 33 H (7-18) mg/dL Creatinine 0.9 (0.7-1.3) mg/dL Est Cr Clr Drug Dosing 112.72 mL/min Estimated GFR (MDRD) > 60 (>60) mL/min BUN/Creatinine Ratio 36.7 H (14-18) Glucose 136 H (74-106) mg/dL POC Glucose 112 H (70-105) mg/dL Calcium 8.1 L (8.5-10.1) mg/dL Phosphorus 3.4 (2.6-4.7) mg/dL Magnesium 2.6 H (1.8-2.4) mg/dl Total Bilirubin (0.2-1.0) mg/dL AST (15-37) U/L ALT (16-63) U/L Alkaline Phosphatase (46-116) U/L Troponin I < 0.017 (0.00-0.056) ng/mL C-Reactive Protein (<1.0) mg/dL Total Protein (6.4-8.2) g/dl Albumin (3.4-5.0) g/dl Globulin gm/dL Albumin/Globulin Ratio (1-2) COVID-19 (WON) (NEGATIVE) Blood Type Gel Antibody Screen 07/25/20 Range/Units 05:55 WBC (4.23-9.07) K/mm3 RBC (4.63-6.08) M/mm3 Hgb 9.5 L (13.7-17.5) gm/dl Hct 29.4 L (40.1-51.0) % MCV (79.0-92.2) fl MCH (25.7-32.2) pg MCHC (32.2-35.5) g/dl RDW Std Deviation (35.1-43.9) fL Plt Count (163-337) K/mm3 MPV (9.4-12.3) fl Neut % (Auto) (34.0-67.9) % Lymph % (Auto) (21.8-53.1) % Wayne % (Auto) (5.3-12.2) % Eos % (Auto) (0.8-7.0) Baso % (Auto) (0.1-1.2) % Neut # (Auto) (1.78-5.38) K/mm3 Lymph # (Auto) (1.32-3.57) K/mm3 Wayne # (Auto) (0.30-0.82) K/mm3 Eos # (Auto) (0.04-0.54) K/mm3 Baso # (Auto) (0.01-0.08) K/mm3 ESR (0-15) mm/hr PT (9.7-11.7) SECONDS INR APTT (22-31) SECONDS Sodium (136-145) mEq/L Potassium (3.5-5.1) mEq/L Chloride (98-107) mEq/L Carbon Dioxide (21-32) mEq/L Anion Gap (5-15) BUN (7-18) mg/dL Creatinine (0.7-1.3) mg/dL Est Cr Clr Drug Dosing mL/min Estimated GFR (MDRD) (>60) mL/min BUN/Creatinine Ratio (14-18) Glucose (74-106) mg/dL POC Glucose (70-105) mg/dL Calcium (8.5-10.1) mg/dL Phosphorus (2.6-4.7) mg/dL Magnesium (1.8-2.4) mg/dl Total Bilirubin (0.2-1.0) mg/dL AST (15-37) U/L ALT (16-63) U/L Alkaline Phosphatase (46-116) U/L Troponin I (0.00-0.056) ng/mL C-Reactive Protein (<1.0) mg/dL Total Protein (6.4-8.2) g/dl Albumin (3.4-5.0) g/dl Globulin gm/dL Albumin/Globulin Ratio (1-2) COVID-19 (WON) (NEGATIVE) Blood Type Gel Antibody Screen Med Orders - Current: Current Medications Albuterol (Proventil Hfa) 0 gm INH Q4H PRN PRN Reason: shortness of breath Sodium Chloride (Normal Saline) 1,000 mls @ 125 mls/hr IV ASDIRECTED [facility] Last Admin: 07/25/20 12:00 Dose: 125 mls/hr Documented by: Sodium Chloride (Normal Saline) 1,000 mls @ 500 mls/hr IV ONETIME ONE Stop: 07/25/20 15:29 Ondansetron HCl (Zofran) 4 mg IVPUSH Q6H PRN PRN Reason: Nausea Pantoprazole Sodium (Protonix Iv) 40 mg IVPUSH Q12H [facility] Last Admin: 07/25/20 09:41 Dose: 40 mg Documented by: Polyethylene Glycol/Electrolytes (Golytely) 4,000 ml PO ONETIME ONE Stop: 07/25/20 18:01 Discontinued Medications Sodium Chloride (Normal Saline) 1,000 mls @ 500 mls/hr IV ASDIRECTED [facility] Last Admin: 07/24/20 13:32 Dose: 500 mls/hr Documented by: Magnesium Sulfate 2 gm/ Premix 50 mls @ 25 mls/hr IV ONETIME ONE Stop: 07/24/20 19:45 Last Admin: 07/24/20 18:10 Dose: 25 mls/hr Documented by: Sodium Chloride (Normal Saline) 1,000 mls @ 500 mls/hr IV ONETIME ONE Stop: 07/25/20 13:09 Last Admin: 07/25/20 12:37 Dose: Not Given Documented by: Non-Formulary Medication (Albuterol) 1 dose INH Q4H PRN PRN Reason: Shortness of Breath Pantoprazole Sodium (Protonix Iv) 80 mg IVPUSH BOLUS ONE Stop: 07/24/20 13:04 Last Admin: 07/24/20 13:33 Dose: 80 mg Documented by: - Exam General: Alert, Oriented, Cooperative Lungs: Clear to Auscultation, Normal Respiratory Effort Cardiovascular: Regular Rate, Regular Rhythm, No Murmurs GI/Abdominal Exam: Soft, Non-Tender, No Organomegaly, No Distention, No Abnormal Bruit Skin: Warm, Dry, Intact Sepsis Event Note - Evaluation Sepsis Screening Result: No Definite Risk - Focused Exam Vital Signs: Vital Signs Temp Pulse Resp BP Pulse Ox 07/25/20 12:03 97.9 F 74 18 115/63 99 07/25/20 09:37 116 H 88/59 L 100 07/25/20 09:36 91 108/67 99 07/25/20 08:57 99.0 F 75 16 109/51 L 96 07/25/20 03:12 98.4 F 72 16 119/85 96 - Problem List Review Problem List Initiated/Reviewed/Updated: No - My Orders Last 24 Hours: My Active Orders 07/24/20 16:56 Resuscitation Status Routine 07/24/20 16:58 Albuterol [Proventil HFA] See Dose Instructions INH Q4H PRN 07/24/20 17:00 Sodium Chloride 0.9% [Normal Saline] 1,000 ml IV ASDIRECTED 07/24/20 17:10 Patient Status [ADT] Routine Intake and Output [RC] 04,16 Vital Signs [RC] Q4HR 07/24/20 17:25 Ondansetron [Zofran] 4 mg IVPUSH Q6H PRN 07/24/20 22:00 Pantoprazole [ProTONIX IV] 40 mg IVPUSH Q12H 07/25/20 09:32 Orthostatic Vital Signs [RC] ASDIRECTED 07/25/20 13:00 HEMOGLOBIN/HEMATOCRIT,HH [HEME] Routine 07/25/20 13:30 Sodium Chloride 0.9% [Normal Saline] 1,000 ml IV ONETIME 07/25/20 Dinner Clear Liquid Diet [DIET] 07/25/20 18:00 KCl/Na Sulf,Bicarb,Cl/PEG 3351 [GoLytely] 4,000 ml PO ONETIME ONE 07/26/20 05:11 BASIC METABOLIC PANEL,BMP [CHEM] AM CBC W/O DIFF,HEMOGRAM [HEME] AM MAGNESIUM [CHEM] AM PHOSPHORUS [CHEM] AM 07/26/20 Dinner NPO [Nothing Per Oral Diet] [DIET] 07/27/20 05:11 CBC W/O DIFF,HEMOGRAM [HEME] AM - Assessment Assessment:: Patient has GI bleed. Also has syncopal episodes on prolonged standing. Vitals signs have so far been normal. Today, his reported that he takes a significant amount of NSAIDs for back pain and the patient confirmed it. last NSAIDs use was 3 days ago. I discussed with them that NSAIDs increases the risk of GI ulcers which can happen anywhere in the GI tract. His Hgb dropped to 9.5 from 10.7 last night, I recommended that we proceed with EGD and possible colonoscopy to further evaluate the source of bleeding. His was more interested in EGD first today but I recommended we prepare for both EGD and colonoscopy because although it is likely that the source is upper GI, it is not always the case, therefore if EGD is negative, we can proceed with colonoscopy in the same anesthesia setting. Patient and agreed. They both reside in [place] where his currently lives therefore, another concern is that their insurance may not cover care done here and indicated that she would prefer the patient treated in [place]. I explained to her that, we can do hospital to hospital transfer because the patient is not well enough to be discharged to home or to transport privately to [place]. and patient seem to understand. I also, discussed with them that his syncopal symptoms do not fit the pattern of acute anemia or dehydration as vitals are normal and patient is asymptomatic immediately after standing, it is after standing for a few minutes does he get syncope. I told them that I will have Dr. Thomas consulted for further evaluation on this. They understood. We discussed risks, benefits and alternatives to the EGD and colonoscopy. Risks discussed include bleeding, perforation and need for intervention. I discussed expectation that if we do not find any cause, patient may need to be transferred for further investigation. However, the patient could not sign the consent because would like to speak with another MD in [place] and discuss with the patient prior to signing. I think this is fine. - Plan Plan:: - Recheck Hgb at 1300, then give 1L NS bolus to see if this will help with syncopal episodes. However, patient seems well hydrated based on UOP of 0.8ml/kg for the past 16 hrs. - continue NS at 125cc/hr. - CLD today, NPO at midnight - Golitely starting at 6PM - Plan for EGD, possible colonoscopy tomorrow at 8am if patient agrees.
[2020-07-25] MEDS ORDERED: Polyethylene Glycol/Electrolytes 4,000 ML Bottle PO ONE (18:00)
[2020-07-26] MEDS: Sodium Chloride 0.9% 1,000 ML IV SCH (03:45)
--- NOTE | 2020-07-26 07:44 | PCM.PREANE ---
Preanesthetic Assessment - Procedure Proposed Procedure: EGD/Colonoscopy - Anesthesia/Transfusion/Family Hx Anesthesia History: Prior Anesthesia Without Reaction Family History of Anesthesia Reaction: No Transfusion History: No Prior Transfusion(s) - Review of Systems General: Fatigue Pulmonary: Wheezing (on anxiety) Cardiovascular: No Symptoms Gastrointestinal: No Symptoms Neurological: No Symptoms Other: Reports: None, Anxiety - Physical Assessment NPO Status Date: 07/25/20 NPO Status Time: 00:00 Vital Signs: Last Vital Signs Temp 36.9 C 07/26/20 06:04 Pulse 87 07/26/20 06:04 Resp 16 07/26/20 06:04 BP 113/60 07/26/20 06:04 Pulse Ox 95 07/26/20 06:04 Orthostatic Blood Pressure [ 120/68 Standing] Orthostatic Blood Pressure [ 125/70 Sitting] Orthostatic Blood Pressure [ 116/75 Supine] Height: 1.8 m Weight: 93.077 kg ASA Class: 2 Mental Status: Alert & Oriented x3 Airway Class: Mallampati = 1 Dentition: Reports: [place](s) Thyro-Mental Finger Breadths: 3 Mouth Opening Finger Breadths: 3 ROM/Head Extension: Full Lungs: Clear to Auscultation, Normal Respiratory Effort Cardiovascular: Regular Rate, Regular Rhythm - Lab Values: Laboratory Last Values WBC 3.85 K/mm3 (4.23-9.07) L 07/26/20 05:00 RBC 3.31 M/mm3 (4.63-6.08) L 07/26/20 05:00 Hgb 9.4 gm/dl (13.7-17.5) L 07/26/20 05:00 Hct 29.0 % (40.1-51.0) L 07/26/20 05:00 MCV 87.6 fl (79.0-92.2) 07/26/20 05:00 MCH 28.4 pg (25.7-32.2) 07/26/20 05:00 MCHC 32.4 g/dl (32.2-35.5) 07/26/20 05:00 RDW Std Deviation 41.9 fL (35.1-43.9) 07/26/20 05:00 Plt Count 188 K/mm3 (163-337) 07/26/20 05:00 MPV 10.6 fl (9.4-12.3) 07/26/20 05:00 Neut % (Auto) 67.4 % (34.0-67.9) 07/24/20 20:45 Lymph % (Auto) 25.5 % (21.8-53.1) 07/24/20 20:45 [place] % (Auto) 5.9 % (5.3-12.2) 07/24/20 20:45 Eos % (Auto) 0.8 (0.8-7.0) 07/24/20 20:45 Baso % (Auto) 0.3 % (0.1-1.2) 07/24/20 20:45 Neut # (Auto) 4.80 K/mm3 (1.78-5.38) 07/24/20 20:45 Lymph # (Auto) 1.82 K/mm3 (1.32-3.57) 07/24/20 20:45 [place] # (Auto) 0.42 K/mm3 (0.30-0.82) 07/24/20 20:45 Eos # (Auto) 0.06 K/mm3 (0.04-0.54) 07/24/20 20:45 Baso # (Auto) 0.02 K/mm3 (0.01-0.08) 07/24/20 20:45 Neutrophils % (Manual) 40 % (40-60) 07/26/20 05:00 Band Neutrophils % 0 % (0-10) 07/26/20 05:00 Lymphocytes % (Manual) 53 % (20-40) H 07/26/20 05:00 Atypical Lymphs % 0 % 07/26/20 05:00 Monocytes % (Manual) 6 % (2-10) 07/26/20 05:00 Eosinophils % (Manual) 1 % (0.8-7.0) 07/26/20 05:00 Basophils % (Manual) 0 (0.2-1.2) L 07/26/20 05:00 Platelet Estimate Adequate 07/26/20 05:00 RBC Morph Comment Normal 07/26/20 05:00 ESR 3 mm/hr (0-15) 07/24/20 13:18 Percent Retic 2.45 % (0.51-1.81) H 07/26/20 05:00 PT 11.7 SECONDS (9.7-11.7) 07/24/20 13:18 INR 1.10 07/24/20 13:18 APTT SECONDS (22-31) 07/24/20 13:18 Sodium 141 mEq/L (136-145) 07/26/20 05:00 Potassium 4.0 mEq/L (3.5-5.1) 07/26/20 05:00 Chloride 108 mEq/L (98-107) H 07/26/20 05:00 Carbon Dioxide 26 mEq/L (21-32) 07/26/20 05:00 Anion Gap 11.0 (5-15) 07/26/20 05:00 BUN 13 mg/dL (7-18) 07/26/20 05:00 Creatinine 0.9 mg/dL (0.7-1.3) 07/26/20 05:00 Est Cr Clr Drug Dosing 112.72 mL/min 07/26/20 05:00 Estimated GFR (MDRD) > 60 mL/min (>60) 07/26/20 05:00 BUN/Creatinine Ratio 14.4 (14-18) 07/26/20 05:00 Glucose 89 mg/dL (74-106) 07/26/20 05:00 POC Glucose 112 mg/dL (70-105) H 07/24/20 20:29 Calcium 8.3 mg/dL (8.5-10.1) L 07/26/20 05:00 Phosphorus 3.0 mg/dL (2.6-4.7) 07/26/20 05:00 Magnesium 1.9 mg/dl (1.8-2.4) 07/26/20 05:00 Iron 48 ug/dL (65-175) L 07/26/20 05:00 TIBC 258 ug/dL (100-400) 07/26/20 05:00 % Saturation 19 % (20-55) L 07/26/20 05:00 Transferrin 206 mg/dL (202-364) 07/26/20 05:00 Total Bilirubin 0.5 mg/dL (0.2-1.0) 07/24/20 13:18 AST 13 U/L (15-37) L 07/24/20 13:18 ALT 24 U/L (16-63) 07/24/20 13:18 Alkaline Phosphatase 42 U/L (46-116) L 07/24/20 13:18 Troponin I < 0.017 ng/mL (0.00-0.056) 07/24/20 20:45 C-Reactive Protein 0.2 mg/dL (<1.0) 07/24/20 13:18 Total Protein 5.9 g/dl (6.4-8.2) L 07/24/20 13:18 Albumin 3.2 g/dl (3.4-5.0) L 07/24/20 13:18 Globulin 2.7 gm/dL 07/24/20 13:18 Albumin/Globulin Ratio 1.2 (1-2) 07/24/20 13:18 Vitamin B12 456 pg/ml (193-986) 07/26/20 05:00 Folate 18.8 ng/mL (8.6-58.9) 07/26/20 05:00 COVID-19 (WON) Negative (NEGATIVE) 07/24/20 15:05 Blood Type B POSITIVE 07/24/20 13:18 Gel Antibody Screen Negative 07/24/20 13:18 - Allergies Allergies/Adverse Reactions: Allergies Allergy/AdvReac Type Severity Reaction Status Date / Time No Known Allergies Allergy Verified 07/25/20 02:13 - Anesthesia Plan Pre-Op Medication Ordered: None - Acknowledgements Anesthesia Type Planned: MAC Pt an Appropriate Candidate for the Planned Anesthesia: Yes Alternatives and Risks of Anesthesia Discussed w Pt/Guardian: Yes Pt/Guardian Understands and Agrees with Anesthesia Plan: Yes PreAnesthesia Questionnaire Respiratory History: Reports: Asthma Gastrointestinal History: Reports: GI Bleed - Infectious Disease History Infectious Disease History: Reports: Chicken Pox - Past Surgical History GI Surgical History: Reports: Yovany Fundoplication - SUBSTANCE USE Smoking Status *Q: Never Smoker Tobacco Use Within Last Twelve Months: No Second Hand Smoke Exposure: No Days Per Week of Alcohol Use: 0 Number of Drinks Per Day: 0 Total Drinks Per Week: 0 Recreational Drug Use History: No - HOME MEDS Home Medications: Home Meds Albuterol [Ventolin HFA] 1 dose INH Q4H PRN 07/24/20 [History] - CURRENT (IN HOUSE) MEDS Current Meds: Current Medications Albuterol (Proventil Hfa) 0 gm INH Q4H PRN PRN Reason: shortness of breath Sodium Chloride (Normal Saline) 1,000 mls @ 125 mls/hr IV ASDIRECTED [facility] Last Admin: 07/26/20 03:45 Dose: 125 mls/hr Documented by: Ondansetron HCl (Zofran) 4 mg IVPUSH Q6H PRN PRN Reason: Nausea Pantoprazole Sodium (Protonix Iv) 40 mg IVPUSH Q12H [facility] Last Admin: 07/25/20 21:56 Dose: 40 mg Documented by: Discontinued Medications Sodium Chloride (Normal Saline) 1,000 [facility] Admin: 07/24/20 13:32 Dose: 500 mls/hr Documented by: Magnesium Sulfate 2 gm/ Premix 50 mls @ 25 mls/hr IV ONETIME ONE Stop: 07/24/20 19:45 Last Admin: 07/24/20 18:10 Dose: 25 mls/hr Documented by: Sodium Chloride (Normal Saline) 1,000 mls @ 500 mls/hr IV ONETIME ONE Stop: 07/25/20 13:09 Last Admin: 07/25/20 12:37 Dose: Not Given Documented by: Sodium Chloride (Normal Saline) 1,000 mls @ 500 mls/hr IV ONETIME ONE Stop: 07/25/20 15:29 Last Admin: 07/25/20 14:18 Dose: 500 mls/hr Documented by: Non-Formulary Medication (Albuterol) 1 dose INH Q4H PRN PRN Reason: Shortness of Breath Pantoprazole Sodium (Protonix Iv) 80 mg IVPUSH BOLUS ONE Stop: 07/24/20 13:04 Last Admin: 07/24/20 13:33 Dose: 80 mg Documented by: Polyethylene Glycol/Electrolytes (Golytely) 4,000 ml PO ONETIME ONE Stop: 07/25/20 18:01 Last Admin: 07/25/20 18:48 Dose: 4,000 ml Documented by:
[2020-07-26 07:48] LABS: VITAMIN D,25-HYDROXY 41.9 ng/ml (30.0-100.0)
[2020-07-26] MEDS ORDERED: Propofol 200 MG/20 ML SDV ONE ×2 (07:52→08:21)
[2020-07-26] MEDS ORDERED: Lidocaine 1% 2 ML SDV ONE (07:53)
[2020-07-26] MEDS ORDERED: Midazolam 1 MG/ML 2 ML SDV ONE (07:53)
[2020-07-26] MEDS ORDERED: fentaNYL 100 MCG/2 ML SDV ONE (07:53)
[2020-07-26] MEDS ORDERED: Lactated Ringers 1,000 ML ONE (08:35)
--- NOTE | 2020-07-26 09:05 | PCM48HPAN ---
Post Anesthesia Note - EVALUATION WITHIN 48HRS OF ANESTHETIC Vital Signs in Normal Range: Yes Patient Participated in Evaluation: Yes Respiratory Function Stable: Yes Airway Patent: Yes Cardiovascular Function Stable: Yes Hydration Status Stable: Yes Pain Control Satisfactory: Yes Nausea and Vomiting Control Satisfactory: Yes Mental Status Recovered: Yes Vital Signs: Last Vital Signs Temp 36.9 C 07/26/20 06:04 Pulse 87 07/26/20 06:04 Resp 16 07/26/20 06:04 BP 113/60 07/26/20 06:04 Pulse Ox 95 07/26/20 06:04 Orthostatic Blood Pressure [ 120/68 Standing] Orthostatic Blood Pressure [ 125/70 Sitting] Orthostatic Blood Pressure [ 116/75 Supine] - COMMENTS/OBSERVATIONS Free Text/Narrative:: no anesthesia complications noted
[2020-07-26] MEDS ORDERED: Lactated Ringers 1,000 ML IV SCH (10:00)
[2020-07-26] MEDS: Pantoprazole 40 MG Vial IVPUSH SCH ×2 (10:01→21:37)
--- NOTE | 2020-07-26 11:29 | PCM.PN ---
- General Info Date of Service: 07/26/20 Admission Dx/Problem (Free Text): Admission Diagnosis/Problem GI bleeding, syncope Subjective Update: Patient was stable overnight, completed his prep well. Reported initially dark stools x2 but they became more clear after that. No dizziness overnight Functional Status: Reports: Pain Controlled, Tolerating Diet, Urinating - Review of Systems General: Reports: No Symptoms HEENT: Reports: No Symptoms Pulmonary: Reports: No Symptoms Cardiovascular: Reports: No Symptoms Gastrointestinal: Reports: Melena Genitourinary: Reports: No Symptoms Musculoskeletal: Reports: No Symptoms Skin: Reports: No Symptoms Neurological: Reports: Syncope - Patient Data Vitals - Most Recent: Last Vital Signs Temp 98.4 F 07/26/20 06:04 Pulse 87 07/26/20 06:04 Resp 16 07/26/20 06:04 BP 113/60 07/26/20 06:04 Pulse Ox 95 07/26/20 06:04 Orthostatic Blood Pressure [ 120/68 Standing] Orthostatic Blood Pressure [ 125/70 Sitting] Orthostatic Blood Pressure [ 116/75 Supine] Weight - Most Recent: 93.077 kg I&O - Last 24 Hours: Intake & Output 07/25/20 07/26/20 07/26/20 22:59 06:59 14:59 Intake Total 2282 6060 Output Total 1350 2600 Balance 932 3460 Lab Results Last 24 Hours: Laboratory Results - last 24 hr 07/25/20 07/26/20 07/26/20 Range/Units 14:00 05:00 05:00 WBC 3.85 L (4.23-9.07) K/mm3 RBC 3.31 L (4.63-6.08) M/mm3 Hgb 10.3 L 9.4 L (13.7-17.5) gm/dl Hct 31.6 L 29.0 L (40.1-51.0) % MCV 87.6 (79.0-92.2) fl MCH 28.4 (25.7-32.2) pg MCHC 32.4 (32.2-35.5) g/dl RDW Std Deviation 41.9 (35.1-43.9) fL Plt Count 188 (163-337) K/mm3 MPV 10.6 (9.4-12.3) fl Neutrophils % (Manual) 40 (40-60) % Band Neutrophils % 0 (0-10) % Lymphocytes % (Manual) 53 H (20-40) % Atypical Lymphs % 0 % Monocytes % (Manual) 6 (2-10) % Eosinophils % (Manual) 1 (0.8-7.0) % Basophils % (Manual) 0 L (0.2-1.2) Platelet Estimate Adequate RBC Morph Comment Normal Percent Retic 2.45 H (0.51-1.81) % Sodium 141 (136-145) mEq/L Potassium 4.0 (3.5-5.1) mEq/L Chloride 108 H (98-107) mEq/L Carbon Dioxide 26 (21-32) mEq/L Anion Gap 11.0 (5-15) BUN 13 (7-18) mg/dL Creatinine 0.9 (0.7-1.3) mg/dL Est Cr Clr Drug Dosing 112.72 mL/min Estimated GFR (MDRD) > 60 (>60) mL/min BUN/Creatinine Ratio 14.4 (14-18) Glucose 89 (74-106) mg/dL Calcium 8.3 L (8.5-10.1) mg/dL Phosphorus 3.0 (2.6-4.7) mg/dL Magnesium 1.9 (1.8-2.4) mg/dl Iron (65-175) ug/dL TIBC (100-400) ug/dL % Saturation (20-55) % Transferrin (202-364) mg/dL Vitamin B12 (193-986) pg/ml Vitamin D 25-Hydroxy 41.9 (30.0-100.0) ng/ml Folate (8.6-58.9) ng/mL 07/26/20 Range/Units 05:00 WBC (4.23-9.07) K/mm3 RBC (4.63-6.08) M/mm3 Hgb (13.7-17.5) gm/dl Hct (40.1-51.0) % MCV (79.0-92.2) fl MCH (25.7-32.2) pg MCHC (32.2-35.5) g/dl RDW Std Deviation (35.1-43.9) fL Plt Count (163-337) K/mm3 MPV (9.4-12.3) fl Neutrophils % (Manual) (40-60) % Band Neutrophils % (0-10) % Lymphocytes % (Manual) (20-40) % Atypical Lymphs % % Monocytes % (Manual) (2-10) % Eosinophils % (Manual) (0.8-7.0) % Basophils % (Manual) (0.2-1.2) Platelet Estimate RBC Morph Comment Percent Retic (0.51-1.81) % Sodium (136-145) mEq/L Potassium (3.5-5.1) mEq/L Chloride (98-107) mEq/L Carbon Dioxide (21-32) mEq/L Anion Gap (5-15) BUN (7-18) mg/dL Creatinine (0.7-1.3) mg/dL Est Cr Clr Drug Dosing mL/min Estimated GFR (MDRD) (>60) mL/min BUN/Creatinine Ratio (14-18) Glucose (74-106) mg/dL Calcium (8.5-10.1) mg/dL Phosphorus (2.6-4.7) mg/dL Magnesium (1.8-2.4) mg/dl Iron 48 L (65-175) ug/dL TIBC 258 (100-400) ug/dL % Saturation 19 L (20-55) % Transferrin 206 (202-364) mg/dL Vitamin B12 456 (193-986) pg/ml Vitamin D 25-Hydroxy (30.0-100.0) ng/ml Folate 18.8 (8.6-58.9) ng/mL Fazal Results Last 24 Hours: Microbiology 07/25/20 22:10 Helicobacter pylori Antigen - Final Stool / Feces NEGATIVE [facility]. [facility] REFERENCE RANGE: NEGATIVE Med Orders - Current: Current Medications Albuterol (Proventil Hfa) 0 gm INH Q4H PRN PRN Reason: shortness of breath Lactated Ringer's (Ringers, Lactated) 1,000 mls @ 50 mls/hr IV ASDIRECTED [facility] Ondansetron HCl (Zofran) 4 mg IVPUSH Q6H PRN PRN Reason: Nausea Pantoprazole Sodium (Protonix Iv) 40 mg IVPUSH Q12H [facility] Last Admin: 07/26/20 10:01 Dose: 40 mg Documented by: Discontinued Medications Fentanyl (Sublimaze) Confirm Administered Dose 100 mcg .ROUTE .STK-MED ONE Stop: 07/26/20 07:54 Sodium Chloride (Normal Saline) 1,000 mls @ 500 mls/hr IV ASDIRECTED [facility] Last Admin: 07/24/20 13:32 Dose: 500 mls/hr Documented by: Sodium Chloride (Normal Saline) 1,000 mls @ 125 mls/hr IV ASDIRECTED [facility] Last Admin: 07/26/20 03:45 Dose: 125 mls/hr Documented by: Magnesium Sulfate 2 gm/ Premix 50 mls @ 25 mls/hr IV ONETIME ONE Stop: 07/24/20 19:45 Last Admin: 07/24/20 18:10 Dose: 25 mls/hr Documented by: Sodium Chloride (Normal Saline) 1,000 mls @ 500 mls/hr IV ONETIME ONE Stop: 07/25/20 13:09 Last Admin: 07/25/20 12:37 Dose: Not Given Documented by: Sodium Chloride (Normal Saline) 1,000 mls @ 500 mls/hr IV ONETIME ONE Stop: 07/25/20 15:29 Last Admin: 07/25/20 14:18 Dose: 500 mls/hr Documented by: Lactated Ringer's (Ringers, Lactated) Confirm Administered Dose 1,000 mls @ as directed .ROUTE .STK-MED ONE Stop: 07/26/20 08:36 Lidocaine HCl (Lidocaine 1%) Confirm Administered Dose 4 ml .ROUTE .STK-MED ONE Stop: 07/26/20 07:54 Midazolam HCl (Versed 1 Mg/Ml) Confirm Administered Dose 2 mg .ROUTE .STK-MED ONE Stop: 07/26/20 07:54 Non-Formulary Medication (Albuterol) 1 dose INH Q4H PRN PRN Reason: Shortness of Breath Pantoprazole Sodium (Protonix Iv) 80 mg IVPUSH BOLUS ONE Stop: 07/24/20 13:04 Last Admin: 07/24/20 13:33 Dose: 80 mg Documented by: Polyethylene Glycol/Electrolytes (Golytely) 4,000 ml PO ONETIME ONE Stop: 07/25/20 18:01 Last Admin: 07/25/20 18:48 Dose: 4,000 ml Documented by: Propofol (Diprivan 20 Ml) Confirm Administered Dose 200 mg .ROUTE .STK-MED ONE Stop: 07/26/20 07:53 Propofol (Diprivan 20 Ml) Confirm Administered Dose 200 mg .ROUTE .STK-MED ONE Stop: 07/26/20 08:22 - Exam General: Alert, Oriented, Cooperative HEENT: Pupils Equal Lungs: Normal Respiratory Effort Cardiovascular: Regular Rate, Regular Rhythm GI/Abdominal Exam: Soft, Non-Tender, No Organomegaly, No Distention Sepsis Event Note - Evaluation Sepsis Screening Result: No Definite Risk - Focused Exam Vital Signs: Vital Signs Temp Pulse Resp BP Pulse Ox 07/26/20 06:04 98.4 F 87 16 113/60 95 07/26/20 00:31 98.1 F 93 16 134/59 L 100 - Problem List Review Problem List Initiated/Reviewed/Updated: No - My Orders Last 24 Hours: My Active Orders 07/26/20 08:00 Schedule Procedure [COMM] Routine 07/26/20 10:00 Lactated Ringers [Ringers, Lactated] 1,000 ml IV ASDIRECTED 07/26/20 Lunch Clear Liquid Diet [DIET] 07/26/20 17:00 HEMOGLOBIN/HEMATOCRIT,HH [HEME] Routine 07/27/20 05:11 CBC W/O DIFF,HEMOGRAM [HEME] AM CBC WITH AUTO DIFF [HEME] AM - Assessment Assessment:: Patient has GI bleed likely due to NSAIDs use. Also has syncopal episodes on prolonged standing likely multifactorial. - Plan Plan:: - EGD and colonoscopy performed. EGD shows moderate patchy gastritis and duodenitis in the duodenal bulb. No woody ulcers or stigmata of active/recent bleeding. COlonoscopy was normal, no signs of blood or dark stool throughout the colon. Majority of small bowel not examined by EGD/colonoscopy which could be the source of bleeding. - We will monitor Hgb. Will obtain one at 1700 today and tomorrow AM - Do a standing test with supervision to see if patient still has syncopal episodes today. - If HGB stable and syncopal episodes have resolved, then the patient can be discharged to home with a short interval follow up for CBC recheck. - Patient will need to avoid NSAIDs and start PPIs for 3 months. - Ok to have clears today -IVF to 50cc/hr
--- NOTE | 2020-07-26 14:34 | PROC ---
DATE OF OPERATION: 07/26/2020 SURGEON: Steffanie Tanner MD PREOPERATIVE DIAGNOSIS: Gastrointestinal bleeding. POSTOPERATIVE DIAGNOSES: 1. Gastritis. 2. Duodenitis in the duodenal bulb. PROCEDURES: 1. Esophagogastroduodenoscopy. 2. Colonoscopy. ANESTHESIA: Monitored anesthesia care. COMPLICATIONS: None. INDICATION AND CONSENT: Mr. Rowe is a 44-year-old male who presented to the emergency department 2 days ago with reports of black stools for 3 days, as well as syncopal episodes. The patient was placed in the inpatient observation unit, started on PPIs and IV fluids and he did not pass any dark stools. During admission, hemoglobin was stable, however, hemoglobin dropped to about 1.5 g, necessitating further investigation. I recommend that we proceed with EGD and colonoscopy. The patient is a heavy user of NSAIDs and I discussed the patient that NSAIDs put people at risk for ulcers that can happen at any point in the bowel. We discussed risks, benefits, and alternative and informed consent was obtained. DESCRIPTION OF PROCEDURE: The patient was taken to the procedure room, placed in left lateral decubitus position. Following induction of monitored anesthesia care, a time-out was performed and procedure was started. We started by inserting the scope through the mouth all the way into the second portion of the duodenum. The duodenum was carefully examined. The second portion and the first portion of the duodenum was carefully examined and appeared to be normal. Duodenal bulb had linear erythema without any woody ulcers. There was no stigmata of bleeding throughout the entire duodenum. Then, the scope was put back into the antrum. There was patchy inflammation in the antrum consisting of linear areas of erythema and isolated areas of erythema. Again, there was no woody ulcers or stigmata of recent bleeding. There was also same linear erythema in the stomach body, but here it was less severe. Retroflexion was performed. There was evidence of Yovany fundoplication that was intact. There was no ulcers or any other abnormalities. Biopsies with cold forceps were taken in the antral inflamed areas for pathologic examination. Air was suctioned out and the scope withdrawn back to the esophagus. The entire esophagus appeared to be normal. At this point, the scope was withdrawn. Since there was no clear area of that could explain bleeding, we proceeded with colonoscopy. A perianal exam and digital rectal exam were normal. Scope was inserted and taken all the way to the cecum. There was no bleeding or any indication of bleeding in the entire colon. The effluent from the ileocecal valve appeared to be green and thin. There was no dark or bloody stool. Then, the scope was withdrawn slowly looking for any area that might be bleeding, but there were none. Therefore, the entire colonoscopy was normal. Then, at this point, the air was suctioned out from the colon and then the colonoscopy was withdrawn concluding the procedure. The patient to be taken back to his room. We will continue to monitor his hemoglobin levels and going to give him PPI and we will see how he does. MMODAL /[id number] GAMA
--- NOTE | 2020-07-26 15:27 | PCM.CONSN ---
- General Info Date of Service: 07/26/20 Admission Dx/Problem (Free Text): Admission Diagnosis/Problem GI bleeding, syncope Subjective Update: After the patient's colonoscopy he is feeling well and no longer dizzy. He was able to stand up and ambulate without dizziness or syncope. Functional Status: Reports: Pain Controlled - Review of Systems General: Reports: No Symptoms HEENT: Reports: No Symptoms Pulmonary: Reports: No Symptoms Cardiovascular: Reports: No Symptoms Gastrointestinal: Reports: No Symptoms Musculoskeletal: Reports: No Symptoms Psychiatric: Reports: No Symptoms - Patient Data Vitals - Most Recent: Last Vital Signs Temp 98.4 F 07/26/20 06:04 Pulse 76 07/26/20 11:47 Resp 16 07/26/20 06:04 BP 91/57 L 07/26/20 11:47 Pulse Ox 97 07/26/20 11:47 Orthostatic Blood Pressure [ 120/68 Standing] Orthostatic Blood Pressure [ 125/70 Sitting] Orthostatic Blood Pressure [ 116/75 Supine] Weight - Most Recent: 93.077 kg I&O - Last 24 Hours: Intake & Output 07/26/20 07/26/20 07/26/20 06:59 14:59 22:59 Intake Total 6060 Output Total 2600 Balance 3460 Lab Results Last 24 Hours: Laboratory Results - last 24 hr 07/26/20 07/26/20 07/26/20 Range/Units 05:00 05:00 05:00 WBC 3.85 L (4.23-9.07) K/mm3 RBC 3.31 L (4.63-6.08) M/mm3 Hgb 9.4 L (13.7-17.5) gm/dl Hct 29.0 L (40.1-51.0) % MCV 87.6 (79.0-92.2) fl MCH 28.4 (25.7-32.2) pg MCHC 32.4 (32.2-35.5) g/dl RDW Std Deviation 41.9 (35.1-43.9) fL Plt Count 188 (163-337) K/mm3 MPV 10.6 (9.4-12.3) fl Neutrophils % (Manual) 40 (40-60) % Band Neutrophils % 0 (0-10) % Lymphocytes % (Manual) 53 H (20-40) % Atypical Lymphs % 0 % Monocytes % (Manual) 6 (2-10) % Eosinophils % (Manual) 1 (0.8-7.0) % Basophils % (Manual) 0 L (0.2-1.2) Platelet Estimate Adequate RBC Morph Comment Normal Percent Retic 2.45 H (0.51-1.81) % Sodium 141 (136-145) mEq/L Potassium 4.0 (3.5-5.1) mEq/L Chloride 108 H (98-107) mEq/L Carbon Dioxide 26 (21-32) mEq/L Anion Gap 11.0 (5-15) BUN 13 (7-18) mg/dL Creatinine 0.9 (0.7-1.3) mg/dL Est Cr Clr Drug Dosing 112.72 mL/min Estimated GFR (MDRD) > 60 (>60) mL/min BUN/Creatinine Ratio 14.4 (14-18) Glucose 89 (74-106) mg/dL Calcium 8.3 L (8.5-10.1) mg/dL Phosphorus 3.0 (2.6-4.7) mg/dL Magnesium 1.9 (1.8-2.4) mg/dl Iron 48 L (65-175) ug/dL TIBC 258 (100-400) ug/dL % Saturation 19 L (20-55) % Transferrin 206 (202-364) mg/dL Vitamin B12 456 (193-986) pg/ml Vitamin D 25-Hydroxy 41.9 (30.0-100.0) ng/ml Folate 18.8 (8.6-58.9) ng/mL Fazal Results Last 24 Hours: Microbiology 07/25/20 22:10 Helicobacter pylori Antigen - Final Stool / Feces NEGATIVE [facility] REFERENCE RANGE: NEGATIVE Med Orders - Current: Current Medications Albuterol (Proventil Hfa) 0 gm INH Q4H PRN PRN Reason: shortness of breath Lactated Ringer's (Ringers, Lactated) 1,000 mls @ 50 mls/hr IV ASDIRECTED [facility] Last Admin: 07/26/20 11:54 Dose: 50 mls/hr Documented by: Ondansetron HCl (Zofran) 4 mg IVPUSH Q6H PRN PRN Reason: Nausea Pantoprazole Sodium (Protonix Iv) 40 mg IVPUSH Q12H [facility] Last Admin: 07/26/20 10:01 Dose: 40 mg Documented by: Discontinued Medications Fentanyl (Sublimaze) Confirm Administered Dose 100 mcg .ROUTE .STK-MED ONE Stop: 07/26/20 07:54 Sodium Chloride (Normal Saline) 1,000 mls @ 500 mls/hr IV ASDIRECTED [facility] Last Admin: 07/24/20 13:32 Dose: 500 mls/hr Documented by: Sodium Chloride (Normal Saline) 1,000 mls @ 125 mls/hr IV ASDIRECTED [facility] Last Admin: 07/26/20 03:45 Dose: 125 mls/hr Documented by: Magnesium Sulfate 2 gm/ Premix 50 mls @ 25 mls/hr IV ONETIME ONE Stop: 07/24/20 19:45 Last Admin: 07/24/20 18:10 Dose: 25 mls/hr Documented by: Sodium Chloride (Normal Saline) 1,000 mls @ 500 mls/hr IV ONETIME ONE Stop: 07/25/20 13:09 Last Admin: 07/25/20 12:37 Dose: Not Given Documented by: Sodium Chloride (Normal Saline) 1,000 mls @ 500 mls/hr IV ONETIME ONE Stop: 07/25/20 15:29 Last Admin: 07/25/20 14:18 Dose: 500 mls/hr Documented by: Lactated Ringer's (Ringers, Lactated) Confirm Administered Dose 1,000 mls @ as directed .ROUTE .STK-MED ONE Stop: 07/26/20 08:36 Lidocaine HCl (Lidocaine 1%) Confirm Administered Dose 4 ml .ROUTE .STK-MED ONE Stop: 07/26/20 07:54 Midazolam HCl (Versed 1 Mg/Ml) Confirm Administered Dose 2 mg .ROUTE .STK-MED ONE Stop: 07/26/20 07:54 Non-Formulary Medication (Albuterol) 1 dose INH Q4H PRN PRN Reason: Shortness of Breath Pantoprazole Sodium (Protonix Iv) 80 mg IVPUSH BOLUS ONE Stop: 07/24/20 13:04 Last Admin: 07/24/20 13:33 Dose: 80 mg Documented by: Polyethylene Glycol/Electrolytes (Golytely) 4,000 ml PO ONETIME ONE Stop: 07/25/20 18:01 Last Admin: 07/25/20 18:48 Dose: 4,000 ml Documented by: Propofol (Diprivan 20 Ml) Confirm Administered Dose 200 mg .ROUTE .STK-MED ONE Stop: 07/26/20 07:53 Propofol (Diprivan 20 Ml) Confirm Administered Dose 200 mg .ROUTE .STK-MED ONE Stop: 07/26/20 08:22 - Exam General: Alert, Oriented HEENT: Pupils Equal, Mucous Membr. Moist/[place] Neck: Supple Lungs: Clear to Auscultation, Normal Respiratory Effort Cardiovascular: Regular Rate, Regular Rhythm GI/Abdominal Exam: Normal Bowel Sounds, Soft, Non-Tender, No Distention Extremities: Normal Inspection, Normal Range of Motion, Non-Tender, No Pedal Edema, Normal Capillary Refill Skin: Warm, Dry, Intact Neurological: No New Focal Deficit Psy/Mental Status: Alert, Normal Affect, Normal Mood Sepsis Event Note - Evaluation Sepsis Screening Result: No Definite Risk - Focused Exam Vital Signs: Vital Signs Temp Pulse Resp BP Pulse Ox 07/26/20 11:47 76 91/57 L 97 07/26/20 11:31 86 102/60 98 07/26/20 11:17 70 99/57 L 95 07/26/20 11:02 70 102/59 L 95 07/26/20 10:47 78 101/60 99 07/26/20 10:32 74 107/53 L 98 07/26/20 10:17 66 105/56 L 97 07/26/20 10:02 74 101/55 L 96 07/26/20 09:46 75 100/61 96 07/26/20 09:32 70 102/53 L 95 07/26/20 09:17 72 106/56 L 95 07/26/20 09:03 81 104/55 L 96 07/26/20 06:04 98.4 F 87 16 113/60 95 Consult PN Assessment/Plan (1) Orthostatic hypotension SNOMED Code(s): 18159536 Code(s): I95.1 - ORTHOSTATIC HYPOTENSION Current Visit: Yes (2) Syncope and collapse SNOMED Code(s): 246008105 Code(s): R55 - SYNCOPE AND COLLAPSE Current Visit: Yes (3) Upper gastrointestinal hemorrhage SNOMED Code(s): 50278740 Code(s): K92.2 - GASTROINTESTINAL HEMORRHAGE, UNSPECIFIED Current Visit: Yes Problem List Initiated/Reviewed/Updated: Yes Plan: Syncope secondary to hypovolemia and acute blood loss from GI bleed. * Patient is currently stable with no further GI bleeding, essentially negative endoscopy, and no further dizziness, lightheadedness, or syncopal episodes. * From our standpoint patient is medically stable. * Patient will need iron supplementation at discharge. * Medicine will sign off unless further evaluation is needed.
[2020-07-27] MEDS: Pantoprazole 40 MG Vial IVPUSH SCH (10:36)
--- NOTE | 2020-07-27 10:57 | PCM.PN ---
- General Info Date of Service: 07/27/20 Admission Dx/Problem (Free Text): Admission Diagnosis/Problem GI bleeding, syncope Subjective Update: Doing well Able to walk, take a shower without any lightheadedness No BM since yesterday Tolerating diet Functional Status: Reports: Tolerating Diet, Ambulating, Urinating - Review of Systems General: Reports: No Symptoms HEENT: Reports: No Symptoms Pulmonary: Reports: No Symptoms Cardiovascular: Reports: No Symptoms Gastrointestinal: Reports: Abdominal Pain Genitourinary: Reports: No Symptoms Musculoskeletal: Reports: No Symptoms Skin: Reports: No Symptoms Neurological: Reports: No Symptoms Psychiatric: Reports: No Symptoms - Patient Data Vitals - Most Recent: Last Vital Signs Temp 97.9 F 07/27/20 08:47 Pulse 74 07/27/20 08:47 Resp 18 07/27/20 08:47 BP 107/95 H 07/27/20 08:47 Pulse Ox 96 07/27/20 08:47 Orthostatic Blood Pressure [ 120/68 Standing] Orthostatic Blood Pressure [ 125/70 Sitting] Orthostatic Blood Pressure [ 116/75 Supine] Weight - Most Recent: 91.716 kg I&O - Last 24 Hours: Intake & Output 07/26/20 07/27/20 07/27/20 22:59 06:59 14:59 Intake Total 872 1025 Output Total 1750 1300 Balance -878 -275 Lab Results Last 24 Hours: Laboratory Results - last 24 hr 07/26/20 07/26/20 07/27/20 Range/Units 05:00 17:25 04:25 WBC 4.07 L (4.23-9.07) K/mm3 RBC 3.21 L (4.63-6.08) M/mm3 Hgb 10.1 L 9.1 L (13.7-17.5) gm/dl Hct 30.0 L 28.0 L (40.1-51.0) % MCV 87.2 (79.0-92.2) fl MCH 28.3 (25.7-32.2) pg MCHC 32.5 (32.2-35.5) g/dl RDW Std Deviation 40.3 (35.1-43.9) fL Plt Count 184 (163-337) K/mm3 MPV 10.3 (9.4-12.3) fl Neut % (Auto) 46.3 (34.0-67.9) % Lymph % (Auto) 40.0 (21.8-53.1) % [place] % (Auto) 8.8 (5.3-12.2) % Eos % (Auto) 4.2 (0.8-7.0) Baso % (Auto) 0.5 (0.1-1.2) % Neut # (Auto) 1.88 (1.78-5.38) K/mm3 Lymph # (Auto) 1.63 (1.32-3.57) K/mm3 [place] # (Auto) 0.36 (0.30-0.82) K/mm3 Eos # (Auto) 0.17 (0.04-0.54) K/mm3 Baso # (Auto) 0.02 (0.01-0.08) K/mm3 Prealbumin 22.6 (17.0-34.0) mg/dL Med Orders - Current: Current Medications Albuterol (Proventil Hfa) 0 gm INH Q4H PRN PRN Reason: shortness of breath Ondansetron HCl (Zofran) 4 mg IVPUSH Q6H PRN PRN Reason: Nausea Pantoprazole Sodium (Protonix Iv) 40 mg IVPUSH Q12H [facility] Last Admin: 07/27/20 10:36 Dose: 40 mg Documented by: Discontinued Medications Fentanyl (Sublimaze) Confirm Administered Dose 100 mcg .ROUTE .STK-MED ONE Stop: 07/26/20 07:54 Sodium Chloride (Normal Saline) 1,000 mls @ 500 mls/hr IV ASDIRECTED [facility] Last Admin: 07/24/20 13:32 Dose: 500 mls/hr Documented by: Sodium Chloride (Normal Saline) 1,000 mls @ 125 mls/hr IV ASDIRECTED [facility] Last Admin: 07/26/20 03:45 Dose: 125 mls/hr Documented by: Magnesium Sulfate 2 gm/ Premix 50 mls @ 25 mls/hr IV ONETIME ONE Stop: 07/24/20 19:45 Last Admin: 07/24/20 18:10 Dose: 25 mls/hr Documented by: Sodium Chloride (Normal Saline) 1,000 mls @ 500 mls/hr IV ONETIME ONE Stop: 07/25/20 13:09 Last Admin: 07/25/20 12:37 Dose: Not Given Documented by: Sodium Chloride (Normal Saline) 1,000 mls @ 500 mls/hr IV ONETIME ONE Stop: 07/25/20 15:29 Last Admin: 07/25/20 14:18 Dose: 500 mls/hr Documented by: Lactated Ringer's (Ringers, Lactated) Confirm Administered Dose 1,000 mls @ as directed .ROUTE .STK-MED ONE Stop: 07/26/20 08:36 Lactated Ringer's (Ringers, Lactated) 1,000 mls @ 50 mls/hr IV ASDIRECTED [facility] Last Admin: 07/26/20 11:54 Dose: 50 mls/hr Documented by: Lidocaine HCl (Lidocaine 1%) Confirm Administered Dose 4 ml .ROUTE .STK-MED ONE Stop: 07/26/20 07:54 Midazolam HCl (Versed 1 Mg/Ml) Confirm Administered Dose 2 mg .ROUTE .STK-MED ONE Stop: 07/26/20 07:54 Non-Formulary Medication (Albuterol) 1 dose INH Q4H PRN PRN Reason: Shortness of Breath Pantoprazole Sodium (Protonix Iv) 80 mg IVPUSH BOLUS ONE Stop: 07/24/20 13:04 Last Admin: 07/24/20 13:33 Dose: 80 mg Documented by: Polyethylene Glycol/Electrolytes (Golytely) 4,000 ml PO ONETIME ONE Stop: 07/25/20 18:01 Last Admin: 07/25/20 18:48 Dose: 4,000 ml Documented by: Propofol (Diprivan 20 Ml) Confirm Administered Dose 200 mg .ROUTE .STK-MED ONE Stop: 07/26/20 07:53 Propofol (Diprivan 20 Ml) Confirm Administered Dose 200 mg .ROUTE .STK-MED ONE Stop: 07/26/20 08:22 - Exam General: Alert, Oriented, Cooperative Lungs: Clear to Auscultation, Normal Respiratory Effort Cardiovascular: Regular Rate, Regular Rhythm GI/Abdominal Exam: Soft, Non-Tender, No Organomegaly, No Distention, No Abnormal Bruit Sepsis Event Note - Evaluation Sepsis Screening Result: No Definite Risk - Focused Exam Vital Signs: Vital Signs Temp Pulse Resp BP Pulse Ox 07/27/20 08:47 97.9 F 74 18 107/95 H 96 07/27/20 05:55 97.5 F 75 16 122/71 97 07/27/20 00:33 98.2 F 90 16 110/63 94 L - Problem List Review Problem List Initiated/Reviewed/Updated: No - My Orders Last 24 Hours: My Active Orders 07/26/20 Dinner Regular Diet [DIET] 07/27/20 10:50 Ready for Discharge [RC] PER UNIT ROUTINE - Assessment Assessment:: Patient has anemia likely GI bleed likely due to NSAIDs use. Also has syncopal episodes on prolonged standing likely multifactorial. - Plan Plan:: - patient doing well. Hgb is stable, syncope has resolved. The patient will be discharged to home today. He will continue PPIs BID, avoid NSAIDs and follow up with PCP in the next 1-2 weeks. THis was discussed with the patient and his brother who is an MD currently in [place].
--- NOTE | 2020-07-27 11:01 | PCM.DCSUM1 ---
Discharge Summary - Hospital Course Free Text/Narrative:: The patient presented to the ED with melena and syncopal episodes. His Hgb was 11 at presentation. He was monitored in the hospital and had a witnessed syncopal episode here. His anemia stabilized at 9-10. He did not have any witnessed melena here in the hospital, however, he reported that his initial stools during the prep for colonoscopy were dark. He underwent colonoscopy and EGD. Colonoscopy was normal but EGD showed moderate inflammation in the stomach antrum and duodenal bulb without any woody ulcer. Patient's syncopal episodes resolved and Hgb remained stable. He will be discharged to home. He is instructed to avoid all NSAIDs at this time and continue PPIs BID for 3 months. He is to follow up with his PCP in 1-2 weeks for further evaluation. Diagnosis: Stroke: No - Discharge Data Discharge Date: 07/27/20 Discharge Disposition: Home, Self-Care 01 Condition: Good - Referral to Home Health Primary Care Physician: PCP None - Patient Summary/Data Consults: Consultations 07/25/20 21:43 Consult to Dietary [Consult to [place] [employer]] [CONS] Routine - Patient Instructions Diet: Regular Diet as Tolerated Activity: As Tolerated Driving: May Drive Today Showering/Bathing: May Shower Notify Provider of: Fever, Increased Pain, Nausea and/or Vomiting Other/Special Instructions: - If syncopal episodes recur, please seek immediate medical attention. - Avoid ALL NSAIDs (Alleve, Ibuprofen, Aspirin, Naproxen etc). You can take Tylenol. - Follow up with PCP in 1-2 weeks for further work up. - Discharge Plan *PRESCRIPTION DRUG MONITORING PROGRAM REVIEWED*: Not Applicable *COPY OF PRESCRIPTION DRUG MONITORING REPORT IN PATIENT PATRICE: Not Applicable Prescriptions/Med Rec: Pantoprazole Sodium [Protonix] 40 mg PO BID 90 Days #90 tablet. Home Medications: Home Meds Albuterol [Ventolin HFA] 1 dose INH Q4H PRN 07/24/20 [History] Pantoprazole Sodium [Protonix] 40 mg PO BID 90 Days #90 tablet. 07/27/20 [Rx] Oxygen Therapy Mode: Room Air Referrals: PCP,None [Primary Care Provider] - (Follow up with PCP in 1-2 weeks.) - Discharge Summary/Plan Comment DC Time >30 min.: Yes - General Info Date of Service: 07/27/20 Admission Dx/Problem (Free Text: Admission Diagnosis/Problem GI bleeding, syncope Subjective Update: Doing well he was able to walk around and take a shower yesterday without any lightheadedness or syncope. He is tolerating diet Had a tinge of abdominal pain in the RUQ yesterday. this was short lived. Functional Status: Reports: Tolerating Diet, Urinating - Review of Systems General: Reports: No Symptoms HEENT: Reports: No Symptoms Pulmonary: Reports: No Symptoms Cardiovascular: Reports: No Symptoms Gastrointestinal: Reports: Abdominal Pain Genitourinary: Reports: No Symptoms Musculoskeletal: Reports: No Symptoms Skin: Reports: No Symptoms Neurological: Reports: No Symptoms Psychiatric: Reports: No Symptoms - Patient Data Vitals - Most Recent: Last Vital Signs Temp 97.9 F 07/27/20 08:47 Pulse 74 07/27/20 08:47 Resp 18 07/27/20 08:47 BP 107/95 H 07/27/20 08:47 Pulse Ox 96 07/27/20 08:47 Orthostatic Blood Pressure [ 120/68 Standing] Orthostatic Blood Pressure [ 125/70 Sitting] Orthostatic Blood Pressure [ 116/75 Supine] Weight - Most Recent: 91.716 kg I&O - Last 24 hours: Intake & Output 07/26/20 07/27/20 07/27/20 22:59 06:59 14:59 Intake Total 872 1025 Output Total 1750 1300 Balance -878 -799 Lab Results - Last 24 hrs: Laboratory Results - last 24 hr 07/26/20 07/26/20 07/27/20 Range/Units 05:00 17:25 04:25 WBC 4.07 L (4.23-9.07) K/mm3 RBC 3.21 L (4.63-6.08) M/mm3 Hgb 10.1 L 9.1 L (13.7-17.5) gm/dl Hct 30.0 L 28.0 L (40.1-51.0) % MCV 87.2 (79.0-92.2) fl MCH 28.3 (25.7-32.2) pg MCHC 32.5 (32.2-35.5) g/dl RDW Std Deviation 40.3 (35.1-43.9) fL Plt Count 184 (163-337) K/mm3 MPV 10.3 (9.4-12.3) fl Neut % (Auto) 46.3 (34.0-67.9) % Lymph % (Auto) 40.0 (21.8-53.1) % [place] % (Auto) 8.8 (5.3-12.2) % Eos % (Auto) 4.2 (0.8-7.0) Baso % (Auto) 0.5 (0.1-1.2) % Neut # (Auto) 1.88 (1.78-5.38) K/mm3 Lymph # (Auto) 1.63 (1.32-3.57) K/mm3 [place] # (Auto) 0.36 (0.30-0.82) K/mm3 Eos # (Auto) 0.17 (0.04-0.54) K/mm3 Baso # (Auto) 0.02 (0.01-0.08) K/mm3 Prealbumin 22.6 (17.0-34.0) mg/dL Med Orders - Current: Current Medications Albuterol (Proventil Hfa) 0 gm INH Q4H PRN PRN Reason: shortness of breath Ondansetron HCl (Zofran) 4 mg IVPUSH Q6H PRN PRN Reason: Nausea Pantoprazole Sodium (Protonix Iv) 40 mg IVPUSH Q12H [facility] Last Admin: 07/27/20 10:36 Dose: 40 mg Documented by: Discontinued Medications Fentanyl (Sublimaze) Confirm Administered Dose 100 mcg .ROUTE .STK-MED ONE Stop: 07/26/20 07:54 Sodium Chloride (Normal Saline) 1,000 mls @ 500 mls/hr IV ASDIRECTED [facility] Last Admin: 07/24/20 13:32 Dose: 500 mls/hr Documented by: Sodium Chloride (Normal Saline) 1,000 mls @ 125 mls/hr IV ASDIRECTED [facility] Last Admin: 07/26/20 03:45 Dose: 125 mls/hr Documented by: Magnesium Sulfate 2 gm/ Premix 50 mls @ 25 mls/hr IV ONETIME ONE Stop: 07/24/20 19:45 Last Admin: 07/24/20 18:10 Dose: 25 mls/hr Documented by: Sodium Chloride (Normal Saline) 1,000 mls @ 500 mls/hr IV ONETIME ONE Stop: 07/25/20 13:09 Last Admin: 07/25/20 12:37 Dose: Not Given Documented by: Sodium Chloride (Normal Saline) 1,000 mls @ 500 mls/hr IV ONETIME ONE Stop: 07/25/20 15:29 Last Admin: 07/25/20 14:18 Dose: 500 mls/hr Documented by: Lactated Ringer's (Ringers, Lactated) Confirm Administered Dose 1,000 mls @ as directed .ROUTE .STK-MED ONE Stop: 07/26/20 08:36 Lactated Ringer's (Ringers, Lactated) 1,000 mls @ 50 mls/hr IV ASDIRECTED [facility] Last Admin: 07/26/20 11:54 Dose: 50 mls/hr Documented by: Lidocaine HCl (Lidocaine 1%) Confirm Administered Dose 4 ml .ROUTE .STK-MED ONE Stop: 07/26/20 07:54 Midazolam HCl (Versed 1 Mg/Ml) Confirm Administered Dose 2 mg .ROUTE .STK-MED ONE Stop: 07/26/20 07:54 Non-Formulary Medication (Albuterol) 1 dose INH Q4H PRN PRN Reason: Shortness of Breath Pantoprazole Sodium (Protonix Iv) 80 mg IVPUSH BOLUS ONE Stop: 07/24/20 13:04 Last Admin: 07/24/20 13:33 Dose: 80 mg Documented by: Polyethylene Glycol/Electrolytes (Golytely) 4,000 ml PO ONETIME ONE Stop: 07/25/20 18:01 Last Admin: 07/25/20 18:48 Dose: 4,000 ml Documented by: Propofol (Diprivan 20 Ml) Confirm Administered Dose 200 mg .ROUTE .STK-MED ONE Stop: 07/26/20 07:53 Propofol (Diprivan 20 Ml) Confirm Administered Dose 200 mg .ROUTE .STK-MED ONE Stop: 07/26/20 08:22 - Exam General: Reports: Alert, Oriented, Cooperative Lungs: Reports: Clear to Auscultation, Normal Respiratory Effort Cardiovascular: Reports: Regular Rate, Regular Rhythm GI/Abdominal Exam: Soft, Non-Tender, No Organomegaly, No Distention, No Abnormal Bruit, No Mass
== END 2020-07-27 12:00 | disposition home or self-care (01) | DRG 379 ==
LOC: EDBD 12:34 → JD.ED 12:34 → JD.MS 15:27
PROVIDERS: ADMIT Surgery; ATTEND Surgery
PROC: 0DJ08ZZ Inspection of Upper Intestinal Tract, Via Natural or Artificial Opening Endoscopic (ICD-10-PCS; principal; 2020-07-26)
PROC: 0DJD8ZZ Inspection of Lower Intestinal Tract, Via Natural or Artificial Opening Endoscopic (ICD-10-PCS; 2020-07-26)
DX: K29.71 Gastritis, unspecified, with bleeding (principal); I95.1 Orthostatic hypotension; Z20.828 Contact with and (suspected) exposure to other viral communicable diseases; E86.1 Hypovolemia; K29.81 Duodenitis with bleeding; J45.909 Unspecified asthma, uncomplicated
CPT/HCPCS: 00731; 36415; 80048; 80053; 82306; 82607; 82746; 82962; 83540; 83735; 84100; 84134; 84466; 84484; 85007; 85014; 85018; 85025; 85027; 85045; 85610; 85652; 85730; 86140; 86850; 86900; 86901; 87338; 93005; 93010; 96361; 96374; 99285; 99285-25; A9270-GY; C9113; J2001; J2250; J2704; J3010; J3475; J7030; J7120; U0002